=== PATIENT | male | born 1945 | race Caucasian/White ===

== ENCOUNTER → 2020-11-13 13:14 | Outpatient (BNVA) | payer MEDICARE, SELFPAY | PROVIDERS: Family Provider Family Medicine; PCP Family Medicine; Referring Provider Family Medicine; Visit Provider Orthopaedic Surgery | DX: G56.02 Carpal tunnel syndrome, left upper limb (principal); M19.042 Primary osteoarthritis, left hand | CPT/HCPCS: 73130 ==

== ENCOUNTER → 2020-12-10 12:59 | Outpatient (BNVA) | payer MEDICARE, SELFPAY | PROVIDERS: Family Provider Family Medicine; PCP Family Medicine; Visit Provider Specialist | DX: G56.02 Carpal tunnel syndrome, left upper limb (principal); M18.12 Unilateral primary osteoarthritis of first carpometacarpal joint, left hand; R20.0 Anesthesia of skin | CPT/HCPCS: 95886; 95908 ==

== ENCOUNTER → 2021-01-18 10:40 | Outpatient (BNVA) | payer MEDICARE, SELFPAY | PROVIDERS: Family Provider Family Medicine; PCP Family Medicine; Visit Provider Orthopaedic Surgery | DX: Z20.822 Contact with and (suspected) exposure to COVID-19 (principal); G56.02 Carpal tunnel syndrome, left upper limb | CPT/HCPCS: 87635 ==

== ENCOUNTER 2021-01-24 07:28 | Day surgery (SDC) | payer MEDICARE, SELFPAY ==
[2021-01-23 15:08] VITALS: BMI 34.3
[2021-01-24] VITALS (10 sets, daily range): BP systolic 122–173; BP diastolic 59–78; PULSE 48–65; RESP 12–18; TEMP 35.9–36.7; O2SAT 93–97
[2021-01-24] MEDS: sodium chloride 0.9% 1,000 ML 30 ML IV (07:58)
--- NOTE | 2021-01-24 08:35 | ANES.PREANE2 ---
Pre-Anesthetic Assessment Pre-Anesthetic Assessment: Height/Weight: Height 1.63 m Weight 90.718 kg Temp Pulse Resp BP Pulse Ox 97.9 F 65 18 133/60 93 01/24/21 07:38 01/24/21 07:38 01/24/21 07:38 01/24/21 07:38 01/24/21 07:38 Preop Diagnosis: Carpal tunnel syndrome Left wrist, osteoarthritis left thumb Proposed Procedure: Operation Date: 01/24/21 08:55 Proposed Procedures p Carpal Tunnel Release 68008 G56.02(Left) - Adolfo Clancy MD Was Beta Flex taken within 24 hours: Yes Was Clonidine taken within 24 hours: N/A Last intake: Intake Last Liquid Date 01/23/21 Last Liquid Time 19:00 Last Solid Date 01/23/21 Last Solid Time 19:00 Social: Social History: No alcohol and No tobacco Exam: Pre-Anes Outpt Exam: alert and oriented x 3 Additional Exam Findings (including area of procedure): Bilateral expiratory wheezes Airway: Submandibular: Other (limited (short neck)) Cervical ROM: Other (limited ) MP: 3 Dentition: False Pulmonary: Pulmonary: COPD, Cough and SOB CV/HEM: CV/HEM: Arrythmia, CAD and HTN : : None reported Hepatic: Hepatic: None reported Metabolic: Metabolic: None reported Musc/skel: Musc/skel: None reported Neuropsych: Neuropsych: None reported Anesthetic Plan: ASA status: 3 Anesthesia: Regional (specify below) Meds/Allergies Current Medications: Current Medications Generic Name Dose Route Start Last Admin Trade Name Freq PRN Reason Stop Dose Admin Sodium Chloride 1,000 mls @ 30 ml s/hr 01/24/21 07:45 01/24/21 07:58 Sodium Chloride 0.9% IV 01/25/21 07:44 30 mls/hr .Q24H ZORA Administration PFSH Anesthesia PFSH: Medical History Anticoagulant long-term use Atrial fibrillation COPD (chronic obstructive pulmonary disease) Dyslipidemia History of cardioversion HTN (hypertension) Family History Father CAD (coronary artery disease) Stroke Mother CAD (coronary artery disease) Cancer Myocardial infarction Grandfather Diabetes PATERNAL Grandmother Diabetes MATERNAL Data Anesthesia Cardiac Studies: No Data to Display
--- NOTE | 2021-01-24 08:46 | W.PM.OPSUD ---
Surgery/Procedure H&P Update DATE OF PROCEDURE: January 24, 2021 DATE H&P PERFORMED: 01/08/21 PREOP DIAGNOSIS: Carpal tunnel syndrome Left wrist, osteoarthritis left thumb PLANNED PROCEDURE: Operation Date: 01/24/21 08:55 Proposed Procedures p Carpal Tunnel Release [id number] G56.02(Left) - Adolfo Clancy MD
[2021-01-24] MEDS: clindamycin 600 MG/50 ML PREMIX 100 MG IV (09:38)
--- NOTE | 2021-01-24 10:32 | PM.OP ---
Operative Report Date of procedure: January 24, 2021 Pre-op Diagnosis: Carpal tunnel syndrome Left wrist Post-op diagnosis: same Procedure Done: Left carpal tunnel release Pathology: none sent Anesthesia: Nerve Block (Renita block) Estimated blood loss (mL): 5 Tourniquet time (min): 20 Findings: No masses or space-occupying lesions were seen within the carpal tunnel Condition: stable Disposition: PACU Procedure: Patient was taken to the operating room and anesthesia provided by the anesthesia service. She was prepped and draped with the arm exposed. A timeout was performed. A 3 cm long incision was made in line with the fourth ray from the distal edge of the carpal tunnel extending proximally. The subcutaneous fat and palmar fascia was divided with a scalpel blade. Under loupe magnification the ulnar neurovascular bundle was identified distally. A hemostat could be passed under the transverse carpal ligament allowing the distal 25% to be divided. A slotted guide was then passed beneath the transverse carpal ligament and the middle 50% divided. Blunt scissors were then passed over the guide freeing the proximal ligament. The tourniquet was deflated. Hemostasis provided with electrocautery. Wound edges were infiltrated with 10 cc of a half percent Marcaine solution. Skin edges were reapproximated with 3-0 Prolene. Sterile dressings were applied. The patient was taken to the recovery room in stable condition
--- NOTE | 2021-01-24 13:35 | ANE.PACU2 ---
Inpatient post-anesthesia follow up: Airway intact: Yes Vital signs: Temperature 97.8 F Pulse Rate 58 Respiratory Rate 18 Blood Pressure 173/78 Pulse Oximetry 95 Oxygen Delivery Me thod Room Air Oxygen Flow Rate 2 Fraction of Inspir ed Oxygen Hydration adequate: Yes Nausea and vomiting: No Pain level: 1 Mental status: Baseline
== END 2021-01-24 11:37 | disposition home or self-care (01) ==
PROVIDERS: PCP Family Medicine; Visit Provider Orthopaedic Surgery
PROC: (CPT 64721; principal; 2021-01-24 08:45)
DX: G56.02 Carpal tunnel syndrome, left upper limb (principal); J44.9 Chronic obstructive pulmonary disease, unspecified; I25.10 Atherosclerotic heart disease of native coronary artery without angina pectoris; I10 Essential (primary) hypertension; I48.91 Unspecified atrial fibrillation; Z79.01 Long term (current) use of anticoagulants; E78.5 Hyperlipidemia, unspecified; Z82.49 Family history of ischemic heart disease and other diseases of the circulatory system; Z83.3 Family history of diabetes mellitus; Z79.82 Long term (current) use of aspirin
CPT/HCPCS: 64721; 94640; 96365; J0690; J2704; J3010; J3490; J7030; J7611

== ENCOUNTER 2022-03-24 08:09 | Emergency (ER) | payer OTHER, SELFPAY ==
[2022-03-24 08:11] VITALS: BP 114/92; PULSE 90; RESP 18; TEMP 36.5; O2SAT 97; BMI 35.2
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
[2022-03-24 08:54] LABS: Add Urine Microscopic? NO; Charge for UA Resulting for Rev
[2022-03-24 09:00] LABS: Bilirubin Urine Neg (Negative); Blood Urine Neg (Negative); Glucose Urine UA Norm (Normal); Ketones Urine Negative (Negative); Leukocyte Esterase Urine Negative (Negative); Nitrate Urine Negative (Negative); Protein Urine Neg (Negative); Specific Gravity, Urine 1.015 (1.005-1.030); Urine Appearance Clear (CLEAR); Urine Color Yellow (Yellow); Urobilinogen Urine Norm (Negative); pH Urine 5 (5-7)
[2022-03-24 09:08] LABS: Amphetamines Screen Urine Negative (Negative); Barbiturates Screen Urine Negative (Negative); Benzodiazepines Screen Urine Negative (Negative); Cocaine Screen Urine Negative (Negative); Opiate Screen Urine Negative (Negative); PCP Screen Urine Negative (Negative); THC Screen Urine Negative (Negative)
[2022-03-24 09:18] LABS: Basophils # 0.1 10^3/uL (0.0-0.1); Basophils % 1.7 %; Eosinophils # 0.4 10^3/uL (0.0-0.8); Eosinophils % 4.7 %; Hematocrit 38.6 % (42.0-52.0); Hemoglobin 13.2 g/dL (11.7-16.6); Lymphocytes % 25.7 %; Mean Corpuscular HGB Conc 34.2 g/dL (30.0-36.0); Mean Corpuscular Hemoglobin 32.8 pg (28.0-34.0); Mean Platelet Volume 11.4 fL (7.4-10.4); Monocytes # 0.7 10^3/uL (0.2-0.9); Monocytes % 9.3 %; Neutrophils # 4.47 10^3/uL (1.8-7.7); Neutrophils % 58.2 %; Nucleated Red Blood Cells % 0 %; Platelet Count 173 10^3/cmm (130-400); Red Blood Count 4.02 10^6/uL (4.1-5.3); Red Cell Distribution Width 12.6 % (12.1-15.1); White Blood Count 7.7 10^3/uL (4.0-10.0)
[2022-03-24 09:38] LABS: Alanine Aminotransferase 14 U/L (0-41); Albumin Level 3.9 g/dL (3.5-5.2); Alkaline Phosphatase 94 IU/L (40-130); Anion Gap 15.8 (5-19); Aspartate Amino Transferase 19 U/L (0-40); Blood Urea Nitrogen 39 mg/dL (8-23); Calcium 9.5 mg/dL (8.5-10.5); Carbon Dioxide 27 mmol/L (22-29); Chloride 100 mmol/L (98-107); Glucose 102 mg/dL (65-115); Osmolality Calculated 298 mOsm/kg (285-295); Potassium 3.8 mmol/L (3.5-5.1); Sodium 139 mmol/L (136-145); Total Bilirubin 0.2 mg/dL (0.15-1.2); Total Protein 6.9 g/dL (6.6-8.7)
[2022-03-24 09:42] LABS: Alcohol Level < 10 mg/dL (0-10)
[2022-03-24 10:53] VITALS: BP 116/59; PULSE 83; RESP 16; O2SAT 96
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
== END 2022-03-24 10:54 | disposition home or self-care (01) ==
PROVIDERS: Emergency Provider Family Medicine; PCP Family Medicine
DX: Z04.1 Encounter for examination and observation following transport accident (principal)
CPT/HCPCS: 36415; 72040; 80053; 80306; 80307; 81003; 85025; 99283

== ENCOUNTER → 2022-10-21 11:02 | Outpatient (BNVA) | payer MEDICARE, SELFPAY | PROVIDERS: PCP Family Medicine; Visit Provider Internal Medicine Cardiovascular Disease | DX: I48.11 Longstanding persistent atrial fibrillation (principal); E78.5 Hyperlipidemia, unspecified; J41.0 Simple chronic bronchitis; I10 Essential (primary) hypertension; Z87.891 Personal history of nicotine dependence | CPT/HCPCS: 99213 ==

== ENCOUNTER → 2022-10-28 10:41 | Outpatient (BNVA) | payer MEDICARE, SELFPAY | PROVIDERS: PCP Family Medicine; Visit Provider Orthopaedic Surgery | DX: G56.02 Carpal tunnel syndrome, left upper limb (principal) | CPT/HCPCS: 99213 ==

== ENCOUNTER 2022-11-13 08:15 | Day surgery (SDC) | payer MEDICARE, SELFPAY ==
[2022-11-12 09:24] VITALS: BMI 31.4
--- NOTE | 2022-11-13 08:26 | ECG_ITS ---
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 Measurements Intervals [place] Rate: 86 P: 0 NM: 0 QRS: 40 QRSD: 89 T: 42 QT: 408 QTc: 489 Interpretive Statements ATRIAL FIBRILLATION ABNORMAL RHYTHM ECG Compared to ECG 07/15/2017 08:02:06 Sinus bradycardia no longer present Electronically Signed On 11-13-2022 12:55:32 SECURITY PROGRAM MANAGER by Shyla Ventura M.D. [id number]
[2022-11-13 08:33] VITALS: BP 144/86; PULSE 94; RESP 18; TEMP 36.1; O2SAT 95
[2022-11-13] MEDS: sodium chloride 0.9% 1,000 ML 30 ML IV (09:05)
[2022-11-13 09:28] LABS: Anion Gap 16.2 (5-19); Blood Urea Nitrogen 23 mg/dL (8-23); Calcium 8.9 mg/dL (8.5-10.5); Carbon Dioxide 27 mmol/L (22-29); Chloride 98 mmol/L (98-107); Glucose 107 mg/dL (65-115); Osmolality Calculated 288 mOsm/kg (285-295); Potassium 4.2 mmol/L (3.5-5.1); Sodium 137 mmol/L (136-145)
--- NOTE | 2022-11-13 09:54 | W.PM.OPSUD ---
Surgery/Procedure H&P Update DATE OF PROCEDURE: November 13, 2022 DATE H&P PERFORMED: 10/28/22 H&P UPDATE INFORMATION: I have reviewed H&P completed within last 30 days PREOP DIAGNOSIS: Carpal tunnel syndrome right PLANNED PROCEDURE: Operation Date: 11/13/22 09:50 Proposed Procedures p right carpal tunnel release [id number],G56.02(Left) - Adolfo Clancy MD
--- NOTE | 2022-11-13 10:55 | ANES.PREANE2 ---
Pre-Anesthetic Assessment Height/Weight: Height 1.7 m Weight 91.172 kg Temp Pulse Resp BP Pulse Ox O2 Del Method 97.0 F L 94 18 144/86 95 11/13/22 08:33 11/13/22 08:33 11/13/22 08:33 11/13/22 08:33 11/13/22 08:33 11/13/22 08:33 Preop Diagnosis: Carpal tunnel syndrome right Operation Date: 11/13/22 09:50 Proposed Procedures p left carpal tunnel release [id number],G56.02(Left) - Adolfo Clancy MD Familial anesthetic complications: none Was Beta Flex taken within 24 hours: Yes Was Clonidine taken within 24 hours: N/A Last intake: Intake Last Liquid Date 11/12/22 Last Liquid Time 21:00 Last Solid Date 11/12/22 Last Solid Time 16:30 Social No alcohol and No tobacco Exam alert, oriented x 3 and regular rate & rhythm Airway Submandibular: within normal limits Cervical ROM: within normal limits Mallampati: Class II Dentition: chipped Pulmonary Chronic Obstructive Pulmonary Disease CV/HEM Atrial Fibrillation and Hypertension anticoagulated Anesthetic Plan ASA status: 3 Anesthesia: Choice Medications/Allergies Home Medications Medication Instructions Recorded Confirmed Last Taken Type albuterol sulfate 1.25 mg/3 mL 1.25 mg inhalation QID PRN 11/16/19 11/12/22 Unknown History solution for nebulization shortness of breath aspirin 81 mg tablet,delayed 81 mg PO DAILY 11/16/19 11/12/22 11/08/22 History release (Adult Low Dose Aspirin) cetirizine 10 mg tablet (Zyrtec) 10 mg PO DAILY PRN Allergic 11/16/19 11/12/22 11/12/22 History Symptoms gabapentin 300 mg capsule 300 mg PO BID 11/16/19 11/12/22 11/12/22 History albuterol sulfate 90 mcg/actuation 1 inh inhalation QID #1 ea 04/15/22 11/12/22 Unknown Rx breath activated powder inhaler metoprolol tartrate 25 mg tablet 25 mg PO BID #60 tabs 07/08/22 11/13/22 11/12/22 18:00 Rx furosemide 20 mg tablet (Lasix) 20 mg PO DAILY #60 tabs 08/28/22 11/12/22 11/12/22 Rx amiodarone 200 mg tablet 100 mg PO DAILY #45 tabs 09/29/22 11/13/22 11/13/22 Rx rivaroxaban 20 mg tablet (Xarelto) 20 mg PO DAILY #90 tabs 10/15/22 11/12/22 11/08/22 Rx diphenhydramine HCl 25 mg capsule 25 mg PO TID PRN Allergy Symptoms 10/21/22 11/12/22 11/10/22 History (Benadryl) rosuvastatin 10 mg tablet 10 mg PO DAILY 10/21/22 11/12/22 11/12/22 History losartan 50 mg-hydrochlorothiazide 1 tab PO BID #180 tabs 11/04/22 11/12/22 11/12/22 Rx 12.5 mg tablet Allergies Allergy/AdvReac Type Severity Reaction Status Date / Time Penicillins Allergy Severe SOB and Verified 10/28/22 11:00 rash cortisone Allergy Unknown Unknown Verified 10/28/22 11:00 [facility] Anesthesia Medical History Anticoagulant long-term use Atrial fibrillation COPD (chronic obstructive pulmonary disease) Dyslipidemia Epistaxis History of cardioversion HTN (hypertension) Rectal bleeding Family History Father CAD (coronary artery disease) Stroke Mother CAD (coronary artery disease) Cancer Myocardial infarction Grandfather Diabetes PATERNAL Grandmother Diabetes MATERNAL Social History Smoking and tobacco status: former smoker Alcohol intake: never Data Anesthesia 11/13/22 09:03 BMP 11/13/22 09:03 Sodium 137 Potassium 4.2 Chloride 98 Carbon Dioxide 27 BUN 23 Creatinine 1.5 H Glucose 107 Calcium 8.9 Cardiac Studies: No Data to Display
[2022-11-13] MEDS: ceFAZolin 2,000 MG in sodium chloride 0.9% (plus) 50 ML 100 MG IV (11:13)
[2022-11-13 11:59] VITALS: BP 144/76; PULSE 86; RESP 16; TEMP 36.1; O2SAT 100
[2022-11-13 12:05] VITALS: BP 138/99; PULSE 82; RESP 16; O2SAT 100
[2022-11-13 12:10] VITALS: BP 153/80; PULSE 90; RESP 16; O2SAT 97
[2022-11-13 12:13] VITALS: BP 132/78; PULSE 84; RESP 16; TEMP 36.6; O2SAT 95
[2022-11-13 12:28] VITALS: BP 131/80; PULSE 91; RESP 17; O2SAT 96
--- NOTE | 2022-11-13 14:24 | ANE.PACU2 ---
Inpatient post-anesthesia follow up: Airway intact: Yes Vital signs: Temperature 98 F Pulse Rate 91 Respiratory Rate 17 Blood Pressure 131/80 Pulse Oximetry 96 Oxygen Delivery Me thod Room Air Oxygen Flow Rate 6 Fraction of Inspir ed Oxygen Hydration adequate: Yes Nausea and vomiting: No Pain level: 2 Mental status: Baseline
--- NOTE | 2022-11-17 10:02 | PM.OP ---
Operative Report Date of procedure: November 13, 2022 Pre-op diagnosis: Preop Diagnosis Carpal tunnel syndrome right Post-op diagnosis: same Post-op diagnosis: Same Procedure done: Right carpal tunnel release Pathology: none sent Surgeon: Adolfo Clancy Anesthesia: Nerve Block ([place] block) Estimated blood loss (mL): 2 Tourniquet time (min): 20 Findings: No masses or space-occupying lesions were seen within the carpal tunnel Condition: stable Disposition: PACU Procedure: Patient was taken to the operating room and anesthesia provided by the anesthesia service. She was prepped and draped with the arm exposed. A timeout was performed. A 3 cm long incision was made in line with the fourth ray from the distal edge of the carpal tunnel extending proximally. The subcutaneous fat and palmar fascia was divided with a scalpel blade. Under loupe magnification the ulnar neurovascular bundle was identified distally. A hemostat could be passed under the transverse carpal ligament allowing the distal 25% to be divided. A slotted guide was then passed beneath the transverse carpal ligament and the middle 50% divided. Blunt scissors were then passed over the guide freeing the proximal ligament. The tourniquet was deflated. Hemostasis provided with electrocautery. Wound edges were infiltrated with 10 cc of a half percent Marcaine solution. Skin edges were reapproximated with 3-0 Prolene. Sterile dressings were applied. The patient was taken to the recovery room in stable condition
== END 2022-11-13 12:50 | disposition home or self-care (01) ==
PROVIDERS: Anesthesiology; PCP Family Medicine; Visit Provider Orthopaedic Surgery
PROC: (CPT 64721; principal; 2022-11-13 09:40)
DX: G56.01 Carpal tunnel syndrome, right upper limb (principal); J44.9 Chronic obstructive pulmonary disease, unspecified; I48.91 Unspecified atrial fibrillation; I10 Essential (primary) hypertension; Z79.01 Long term (current) use of anticoagulants; Z79.82 Long term (current) use of aspirin; E78.5 Hyperlipidemia, unspecified; Z87.891 Personal history of nicotine dependence
CPT/HCPCS: 64721; 36415; 80048; 93005; J0690; J2704; J3490; J7030

== ENCOUNTER → 2022-11-20 09:40 | Outpatient (BNVA) | payer MEDICARE, SELFPAY | PROVIDERS: PCP Family Medicine; Visit Provider Nurse Practitioner Family | DX: Z98.890 Other specified postprocedural states (principal) | CPT/HCPCS: 99024 ==

== ENCOUNTER 2022-12-02 13:23 | Outpatient (CLI) | payer MEDICARE, SELFPAY ==
--- NOTE | 2022-12-02 13:39 | CT_ITS ---
WS: [id number] CT LUMBAR SPINE TECHNIQUE: Noncontrast CT of the lumbar spine with coronal and sagittal reformatted images. CLINICAL INFORMATION: RADICULAR LOW BACK PAIN COMPARISON: None. DLP: 842.[address] scans at [facility] use at least one of these dose optimization techniques: automated e xposure control; mA and/or kV adjustment per patient size (includes targeted exams where dose is matc hed to clinical indication); or iterative reconstruction. FINDINGS: Mild lumbar curve. No acute compression. Slight anterolisthesis L4 on L5. Disc space narrowing with v acuum disc phenomenon at L1-L2 and L2 on L3. Visualized lung bases are well aerated. Adrenal glands are normal. No acute compression fractures. L1-L2: Small LEFT proximal foraminal protrusion. Mild LEFT foraminal narrowing. Slight narrowing of t he LEFT subarticular recess. Moderate facet arthropathy. Spinal canal is patent. L2-L3: Mild disc bulging with mild central canal stenosis. Shallow central protrusion. Impingement tr aversing L3 nerve roots bilaterally. Moderate facet arthropathy. Foramen are patent. L3-L4: Mild annular bulging with slight effacement of the ventral thecal sac. Moderate facet arthropa thy. Spinal canal and foramen are patent. L4-L5: Slight anterolisthesis L4 on L5. Mild annular bulging with slight effacement of ventral thecal sac. Moderate facet arthropathy. Foramen are patent. L5-S1: Mild annular bulging. Moderate facet arthropathy. Mild RIGHT and no LEFT foraminal narrowing. Visualized pelvic bony structures: Normal. Paravertebral soft tissues: Normal. CT/CT lumbar spine wo con* [id number] IMPRESSION: 1. Mild lumbar curve. No acute compression. Slight anterolisthesis L4 on L5. 2. Mild disc bulging with a shallow central protrusion L2-L3 with mild central canal stenosis. Slight impingement traversing L3 nerve roots bilaterally. Mode rate facet arthropathy at this level. 3. Tiny shallow LEFT subarticular and proximal foraminal protrusion L1-L2 with mild LEFT foraminal narrowing. 4. Slight anterolisthesis L4-L5 with mild annular bulging and slight effacemen t of ventral thecal sac. 5. Mild bony RIGHT L5-S1 bony foraminal narrowing. 6. Moderate facet arthropathy L3-L5.
== END 2022-12-02 13:24 | disposition home or self-care (01) ==
PROVIDERS: PCP Family Medicine; Visit Provider Family Medicine
DX: M54.16 Radiculopathy, lumbar region (principal); M51.26 Other intervertebral disc displacement, lumbar region; M47.816 Spondylosis without myelopathy or radiculopathy, lumbar region
CPT/HCPCS: 72131

== ENCOUNTER → 2023-01-13 08:10 | Outpatient (BNVA) | payer MEDICARE, SELFPAY | PROVIDERS: PCP Family Medicine; Visit Provider Orthopaedic Surgery | DX: Z98.890 Other specified postprocedural states (principal); R20.0 Anesthesia of skin; R20.2 Paresthesia of skin | CPT/HCPCS: 99024; 99214 ==

== ENCOUNTER → 2023-01-22 09:10 | Outpatient (BNVA) | payer MEDICARE, SELFPAY | PROVIDERS: PCP Family Medicine; Referring Provider Family Medicine; Visit Provider Anesthesiology Pain Medicine | DX: M47.816 Spondylosis without myelopathy or radiculopathy, lumbar region (principal) | CPT/HCPCS: 99204 ==

== ENCOUNTER → 2023-03-24 07:54 | Outpatient (BNVA) | payer MEDICARE, SELFPAY | PROVIDERS: PCP Family Medicine; Visit Provider Specialist | DX: G56.01 Carpal tunnel syndrome, right upper limb (principal) | CPT/HCPCS: 95908; 95909 ==

== ENCOUNTER → 2023-03-31 14:23 | Outpatient (BNVA) | payer MEDICARE, SELFPAY | PROVIDERS: PCP Family Medicine; Visit Provider Orthopaedic Surgery | DX: G56.01 Carpal tunnel syndrome, right upper limb (principal) | CPT/HCPCS: 99213 ==

== ENCOUNTER → 2023-04-21 11:05 | Outpatient (BNVA) | payer MEDICARE, SELFPAY | PROVIDERS: PCP Family Medicine; Visit Provider Internal Medicine Cardiovascular Disease | DX: I48.11 Longstanding persistent atrial fibrillation (principal); Z79.01 Long term (current) use of anticoagulants; I10 Essential (primary) hypertension; J41.0 Simple chronic bronchitis; R42 Dizziness and giddiness; Z87.891 Personal history of nicotine dependence | CPT/HCPCS: 99213 ==

== ENCOUNTER 2023-05-06 13:26 | Emergency (ER) | payer OTHER, SELFPAY ==
[2023-05-06 14:25] VITALS: BP 98/60; PULSE 101; RESP 16; TEMP 37.1; O2SAT 96; BMI 35.2
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
[2023-05-06 16:31] VITALS: BP 145/112; PULSE 109; O2SAT 94
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
[2023-05-06 17:44] VITALS: BP 145/112; PULSE 109; O2SAT 94
== END 2023-05-06 17:45 | disposition home or self-care (01) ==
PROVIDERS: Emergency Provider Family Medicine; PCP Family Medicine
DX: S43.401A Unspecified sprain of right shoulder joint, initial encounter (principal); V89.2XXA Person injured in unspecified motor-vehicle accident, traffic, initial encounter; J44.9 Chronic obstructive pulmonary disease, unspecified; E78.5 Hyperlipidemia, unspecified; I10 Essential (primary) hypertension; Z87.891 Personal history of nicotine dependence
CPT/HCPCS: 72040; 73030; 73130; 99284

== ENCOUNTER → 2023-06-14 10:50 | Outpatient (BNVA) | payer OTHER, SELFPAY | PROVIDERS: PCP Family Medicine; Visit Provider Family Medicine | DX: R05.9 Cough, unspecified (principal); Z20.822 Contact with and (suspected) exposure to COVID-19 | CPT/HCPCS: 87426 ==

== ENCOUNTER 2023-06-16 10:30 | Outpatient (CLI) | payer OTHER, SELFPAY ==
--- NOTE | 2023-06-16 10:43 | MR_ITS ---
WS: [id number] MRI RIGHT SHOULDER HISTORY: SUBLUXATION OF SHOULDER JOINT COMPARISON: Radiograph 05/06/2023 TECHNIQUE: Multiplanar sequences of the shoulder joint are submitted. Severe AC joint arthritis. Bone and soft tissue hypertrophy with mild encroachment on the supraspinat us. Mild downsloping of the acromion with a small osteophyte along the undersurface. Moderate impinge ment upon the rotator cuff. Small amount of fluid in the subacromial and subdeltoid bursa. Only a miranda y small portion of the biceps tendon is identified. No os acromion. There are numerous micrometallic artifacts throughout the shoulder which are typically seen with prio r shoulder repair. Patient did not report prior surgery. Mild atrophy of the supraspinatus muscle but no edema. Marked tendinopathy with surface fraying invol ving the distal supraspinatus tendon. There is no full-thickness tear or retraction of the tendon. Th ere is significant encroachment upon the supraspinatus tendon by the AC joint and subacromial impinge ment. Advanced degenerative changes at the glenohumeral joint. Loss of cartilage with osteophytes and erosions along the joint surfaces. There is also significant motion artifact limiting evaluation of the rotator cuff and the labrum. IMPRESSION: 1. Quality of this examination is compromised by significant motion artifact on all sequences. 2. Scattered, significant micrometallic artifact throughout the shoulder. These types of artifact are typically seen after shoulder surgery. Patient denies prior shoulder surgery. 3. Severe AC joint arthritis. 4. Moderate subacromial impingement with encroachment upon the supraspinatus tendon. 5. Moderate tendinopathy in the distal supraspinatus tendon but no tear is identified. Articular surf hermilo tear may be difficult to exclude with this amount of motion. 6. Advanced glenohumeral joint arthritis. Loss of cartilage with erosive changes along the glenoid.
== END 2023-06-16 10:31 | disposition home or self-care (01) ==
PROVIDERS: PCP Family Medicine; Visit Provider Family Medicine
DX: S43.001A Unspecified subluxation of right shoulder joint, initial encounter (principal); X58.XXXA Exposure to other specified factors, initial encounter; M19.011 Primary osteoarthritis, right shoulder; M25.811 Other specified joint disorders, right shoulder; M67.813 Other specified disorders of tendon, right shoulder
CPT/HCPCS: 73221

== ENCOUNTER → 2023-06-20 12:51 | Outpatient (BNVA) | payer OTHER, SELFPAY | PROVIDERS: PCP Family Medicine; Visit Provider Emergency Medicine | DX: S60.222A Contusion of left hand, initial encounter; X58.XXXA Exposure to other specified factors, initial encounter | CPT/HCPCS: 73130 ==

== ENCOUNTER 2023-07-16 05:35 | Day surgery (SDC) | payer OTHER, SELFPAY ==
[2023-07-15 14:00] VITALS: BMI 35.0
[2023-07-16] VITALS (10 sets, daily range): BP systolic 87–157; BP diastolic 50–83; PULSE 60–93; RESP 12–18; TEMP 36.1–36.2; O2SAT 92–100; BMI 35.0
--- NOTE | 2023-07-16 06:30 | ANES.PREANE2 ---
Pre-Anesthetic Assessment Height/Weight: Height 1.63 m Weight 92.533 kg O2 Del Method Room Air 07/16/23 06:12 Preop Diagnosis: Right Carpal Tunnel syndrome recurrent Operation Date: 07/16/23 07:00 Proposed Procedures p RIGHT CARPAL TUNNEL RELEASE REVISION [id number],G56.00(Right) - Cuong Simons DO Familial anesthetic complications: None Was Beta Flex taken within 24 hours: Yes Was Clonidine taken within 24 hours: N/A Last intake: Intake Last Liquid Date 07/15/23 Last Liquid Time 22:00 Last Solid Date 07/16/23 Last Solid Time 18:00 Social No alcohol and No tobacco Exam alert, oriented x 3, clear to auscultation bilaterally and regular rate & rhythm Airway Mallampati: Class II Dentition: chipped Pulmonary Chronic Obstructive Pulmonary Disease CV/HEM Atrial Fibrillation and Hypertension Metabolic Hyperlipidemia Anesthetic Plan ASA status: 3 Anesthesia: MAC Risk of > 500 ml blood loss (7ml/kg in children): No Medications/Allergies Home Medications Medication Instructions Recorded Confirmed Last Taken Type albuterol sulfate 1.25 mg/3 mL 1.25 mg inhalation QID PRN 11/16/19 07/15/23 07/15/23 History solution for nebulization shortness of breath aspirin 81 mg tablet,delayed 81 mg PO DAILY 11/16/19 07/15/23 07/15/23 History release (Adult Low Dose Aspirin) gabapentin 300 mg capsule 300 mg PO BID 11/16/19 07/16/23 07/16/23 04:30 History albuterol sulfate 90 mcg/actuation 1 inh inhalation QID #1 ea 04/15/22 07/16/23 07/14/23 Rx breath activated powder inhaler metoprolol tartrate 25 mg tablet 25 mg PO BID #60 tabs 07/08/22 07/16/23 07/16/23 04:30 Rx rivaroxaban 20 mg tablet (Xarelto) 20 mg PO DAILY #90 tabs 10/15/22 07/15/23 07/10/23 Rx diphenhydramine HCl 25 mg capsule 25 mg PO TID PRN Allergy Symptoms 10/21/22 07/15/23 11/10/22 History (Benadryl) rosuvastatin 10 mg tablet 10 mg PO DAILY 10/21/22 07/15/23 07/15/23 History amiodarone 200 mg tablet 100 mg PO DAILY #45 tabs 12/11/22 07/16/23 07/16/23 04:30 Rx furosemide 20 mg tablet (Lasix) 20 mg PO DAILY #90 tabs 05/07/23 07/15/23 07/15/23 Rx ondansetron 4 mg disintegrating 4 mg PO Q8H PRN nausea and 06/14/23 07/15/23 Unknown Rx tablet vomiting #30 tabs acyclovir 400 mg tablet 400 mg PO DAILY 07/15/23 07/15/23 07/15/23 History citalopram 10 mg tablet 10 mg PO DAILY 07/15/23 07/15/23 07/15/23 History Allergies Allergy/AdvReac Type Severity Reaction Status Date / Time Penicillins Allergy Severe SOB and Verified 07/16/23 06:06 rash cortisone Allergy Unknown Unknown Verified 07/16/23 06:06 Current Medications Generic Name Dose Route Start Last Admin Trade Name Freq PRN Reason Stop Dose Admin Sodium Chloride 1,000 mls @ 30 mls/hr 07/16/23 06:30 07/16/23 06:40 Sodium Chloride 0.9% IV 07/17/23 06:29 30 mls/hr .Q24H ZORA Administration PFSH Anesthesia Medical History Anticoagulant long-term use Atrial fibrillation COPD (chronic obstructive pulmonary disease) Dizziness Dyslipidemia Epistaxis History of cardioversion HTN (hypertension) Rectal bleeding Family History Father CAD (coronary artery disease) Stroke Mother CAD (coronary artery disease) Cancer Myocardial infarction Grandfather Diabetes PATERNAL Grandmother Diabetes MATERNAL Social History Smoking and tobacco status: former smoker Alcohol intake: never Substance/Drug Use: never Data Anesthesia 07/16/23 06:28 07/16/23 06:28 Short CBC 07/16/23 Range/Units 06:28 WBC 6.91 (3.29-11.43) 10^3/uL Hgb 13.80 (11.27-16.99) g/dL Hct 42.8 (37-53) % MCV 94.5 (82-101) fl Plt Count 185 (157-399) 10^3/cmm Neut % (Auto) 51.1 % Neut # (Auto) 3.53 (1.8-7.7) 10^3/uL BMP 07/16/23 06:28 Sodium Cancelled Potassium Cancelled Chloride Cancelled Carbon Dioxide Cancelled BUN Cancelled Creatinine Cancelled Glucose Cancelled Calcium Cancelled Cardiac Studies: No Data to Display
[2023-07-16] MEDS: sodium chloride 0.9% 1,000 ML 30 ML IV (06:40)
[2023-07-16 06:42] LABS: Basophils # 0.1 10^3/uL (0.0-0.1); Basophils % 1.2 %; Eosinophils # 0.3 10^3/uL (0.0-0.8); Eosinophils % 3.9 %; Hematocrit 42.8 % (37-53); Lymphocytes # 2.2 10^3/uL (0.8-4.8); Lymphocytes % 31.5 %; Mean Corpuscular HGB Conc 32.2 g/dL (30-55); Mean Corpuscular Hemoglobin 30.5 pg (27-33); Mean Corpuscular Volume 94.5 fl (82-101); Mean Platelet Volume 11.5 fL (7.4-10.4); Monocytes # 0.8 10^3/uL (0.2-0.9); Neutrophils # 3.53 10^3/uL (1.8-7.7); Neutrophils % 51.1 %; Nucleated Red Blood Cells % 0 %; Platelet Count 185 10^3/cmm (157-399); Red Blood Count 4.53 10^6/uL (3.85-5.65); Red Cell Distribution Width 12.7 % (12.1-15.1); White Blood Count 6.91 10^3/uL (3.29-11.43)
--- NOTE | 2023-07-16 06:54 | W.PM.OPSUD ---
Surgery/Procedure H&P Update DATE OF PROCEDURE: July 16, 2023 DATE H&P PERFORMED: 06/23/23 H&P UPDATE INFORMATION: I have reviewed H&P completed within last 30 days, I have examined patient prior to procedure and No changes to prior documentation PREOP DIAGNOSIS: Right carpal tunnel syndrome recurrent PRIMARY INDICATION FOR PROCEDURE: Recurrent right carpal tunnel syndrome PLANNED PROCEDURE: Operation Date: 07/16/23 07:00 Proposed Procedures p RIGHT CARPAL TUNNEL RELEASE REVISION [id number],G56.00(Right) - Cuong Simons DO
[2023-07-16] MEDS: ceFAZolin 2,000 MG in sodium chloride 0.9% (plus) 50 ML 100 MG IV (07:09)
[2023-07-16] MEDS: acetaminophen 1,000 MG/100 ML PIGGYBACK 400 MG IV (07:22)
[2023-07-16] MEDS: lidocaine-epi 2% 20 mL INJ 5 ML INJECTION (07:30)
[2023-07-16] MEDS: ROPivacaine 0.5% SDV 30 mL 25 MG INJECTION (07:31)
--- NOTE | 2023-07-16 08:24 | P.BOP_ITS ---
Date of Procedure: 07/16/2023 Surgeon: Cuong Simons DO Talent Development Consultant(s): None Procedure(s) performed: Right carpal tunnel release revision Findings of the procedure(s): Right carpal tunnel syndrome, median nerve entrapment throughout the wrist and distal forearm fascia, procedure went as planned without any complications Estimated blood loss: 5 mL Specimen(s) removed: None Post-operative diagnosis: Recurrent right carpal tunnel syndrome
--- NOTE | 2023-07-16 08:26 | P.OP_ITS ---
Operative Report Date of procedure: July 16, 2023 Surgeon: Cuong Simons DO Procedure: Preoperative diagnosis: Recurrent right carpal tunnel syndrome Post-op diagnosis: Same Procedure done: 1.? Revision right carpal tunnel?release Surgeon: Cuogn Simons DO Anesthesia: MAC (Local) Estimated blood loss: [5mL Tourniquet time [28]minutes IV fluids: See anesthesia?record Complications: None Findings: See operative?report narrative Condition: stable Disposition: same day Brief History: Patient is a pleasant [78]year-old [male] with?recurrent right carpal tunnel syndrome.? Patient has been worked up in the outpatient setting findings and physical examination consistent with this.? Patient nerve conduction studies consistent with carpal tunnel syndrome.? Patient has had a prior carpal tunnel release surgery prior this year and had a nerve study done several months after showing recurrent right carpal tunnel syndrome on my examination he does have consistent findings with this and classic carpal tunnel symptoms on examination. We detailed out patient's?risk benefits complication alternatives with surgical and nonsurgical treatment options. Through shared decision making, patient agrees to proceed with surgical intervention of the right carpal tunnel?release revision.? Patient understands and agrees with current plan.? All questions answered.? Patient elects to proceed with surgical intervention with carpal tunnel?release. Procedure: Patient seen and evaluated in the preoperative holding area.? Consent was?reviewed and signed with patient.? Correct extremity was marked.? Patient was seen evaluated by the anesthesia department once cleared for surgery was brought back to the operative suite.? Patient was kept on [facility] in supine position all bony prominences were well-padded patient properly secured to the bed.??Right upper extremity was then placed onto an armboard.? A nonsterile tourniquet was applied to the?RIght upper arm.? Patient underwent anesthesia per the anesthesia department.? Patient's?Right upper extremity was then prepped and draped in standard orthopedic fashion.? Final timeout performed.? Patient?received appropriate preoperative antibiotics. Under sterile aseptic technique patient?received local anesthesia over the preplanned carpal tunnel incision site. Esmarch was used to exsanguinate the?Right upper extremity and tourniquet was insufflated to 250 mmHg. A Extensive open?Right carpal tunnel incision was made.? Starting distally at Christian's cardinal line in line with the fourth?ray extending proximally Broering past the wrist crease and into the distal forearm. Sharp scalpel incision was made through skin and subcutaneous tissue.? Self-retaining?retractor was placed and the palmar fascia was identified.? This was then split longitudinally and direct visualization of the recurrent transverse carpal ligament was then made.? I then utilizing scalpel feathered through the transverse carpal ligament until I entered the floor of the transverse carpal tunnel ligament into the carpal tunnel.? Next I switched to dissection scissors and completed my?release of the transverse carpal ligament distally with care to protect the?recurrent motor branch.? I completely?released into the palmar fat and until no entrapment was noted distally.? Care was made to protect the superficial palmar arch during my distal dissection.?? Next I made an incision proximally. Once I had identified the median nerve distally I placed a [place] underneath this and continued to dissect through the transverse carpal ligament proximally. Once the entirety of the carpal tunnel was released and open it was noted there was significant tethering of patient's forearm fascia as well as palmaris longus tendon as result given the tethering of the palmar fascia as well as the median antebrachial fascia I then utilized Littler dissection scissors to excise this into the distal forearm to where there was no further areas of entrapment this completely released the median nerve in this region. I then did release the palmaris longus as this did have an area that was tethering across the median nerve. This was all performed under direct loupe magnification and patient was found to have a complete lax and fully exposed and decompressed nerve from the Christian's cardinal line to the distal third of the forearm with no areas of entrapment or tethering. There was hourglass shape of the median nerve showing its compression, The rest of the contents of the carpal tunnel were healthy and intact. No masses were noted.? Tendons appeared healthy.? Wound was then thoroughly irrigated.? Tourniquet deflated.? Hemostasis satisfactory with bipolar electrocautery.? I then closed the incision with interrupted nylon stitches.? Xeroform 4 x 4's and a bulky soft dressing was applied.? Volar splint applied given incision went across the wrist crease Patient was then awakened from anesthesia and taken to PACU in stable condition.? Patient tolerated procedure without complications. Disposition: Patient taken to PACU in stable condition?recovering well.? Dressing clean dry and intact.? Patient will?receive appropriate discharge instr uctions as well as pain medication postoperatively.? Patient to follow-up with me in the office in 2 weeks.? They understand they may be nonweightbearing to the?right hand.? Patient should keep incision clean dry and intact.? Patient understands if any questions or concerns may contact the office.
[2023-07-16] MEDS: ipratropium-albuterol 3 mL Neb (08:43)
--- NOTE | 2023-07-16 10:00 | ANE.PACU2 ---
Inpatient post-anesthesia follow up: Airway intact: Yes Vital signs: Temperature 97 F Pulse Rate 72 Respiratory Rate 18 Blood Pressure 156/79 Pulse Oximetry 92 Oxygen Delivery Me thod Room Air Oxygen Flow Rate 6 Fraction of Inspir ed Oxygen Hydration adequate: Yes Nausea and vomiting: No Pain level: 1 Mental status: Baseline
== END 2023-07-16 10:00 | disposition home or self-care (01) ==
PROVIDERS: Anesthesiology; PCP Family Medicine; Visit Provider Student in an Organized Health Care Education/Training Program
PROC: (CPT 64721; principal; 2023-07-16 07:00)
DX: G56.01 Carpal tunnel syndrome, right upper limb (principal); J44.9 Chronic obstructive pulmonary disease, unspecified; I48.91 Unspecified atrial fibrillation; I10 Essential (primary) hypertension; E78.5 Hyperlipidemia, unspecified; Z79.82 Long term (current) use of aspirin; Z79.01 Long term (current) use of anticoagulants; Z87.891 Personal history of nicotine dependence
CPT/HCPCS: 64721; 85025; A7003; J0131; J0690; J2001; J2371; J2704; J2795; J7030

== ENCOUNTER → 2023-10-16 11:29 | Outpatient (BNVA) | payer OTHER, SELFPAY | PROVIDERS: PCP Family Medicine; Visit Provider Student in an Organized Health Care Education/Training Program | DX: M19.011 Primary osteoarthritis, right shoulder | CPT/HCPCS: 73030 ==

== ENCOUNTER 2023-12-31 12:27 | Outpatient (RCR) | payer MEDICARE, SELFPAY | END 2024-01-10 23:59 | disposition home or self-care (01) | LOC: SPT 12:27 | PROVIDERS: PCP Family Medicine; Visit Provider Student in an Organized Health Care Education/Training Program | DX: M75.41 Impingement syndrome of right shoulder (principal) | CPT/HCPCS: 97110; 97161 ==

== ENCOUNTER 2024-01-11 06:00 | Outpatient (RCR) | payer MEDICARE, SELFPAY | END 2024-02-09 23:59 | disposition home or self-care (01) | LOC: SPT 06:00 | PROVIDERS: PCP Family Medicine; Visit Provider Student in an Organized Health Care Education/Training Program | DX: M75.41 Impingement syndrome of right shoulder (principal) | CPT/HCPCS: 95992; 97110 ==

== ENCOUNTER → 2024-02-25 13:06 | Outpatient (BNVA) | payer MEDICARE, SELFPAY | PROVIDERS: PCP Family Medicine; Visit Provider Student in an Organized Health Care Education/Training Program | DX: M19.011 Primary osteoarthritis, right shoulder | CPT/HCPCS: 99214 ==

== ENCOUNTER 2024-03-21 08:36 | Outpatient (CLI) | payer MEDICARE, SELFPAY ==
[2024-03-21 08:58] LABS: Basophils # 0.1 10^3/uL (0.0-0.1); Basophils % 1.4 %; Eosinophils # 0.5 10^3/uL (0.0-0.8); Eosinophils % 6.1 %; Hematocrit 43.7 % (37-53); Lymphocytes # 2.1 10^3/uL (0.8-4.8); Lymphocytes % 28.6 %; Mean Corpuscular Hemoglobin 32.4 pg (27-33); Mean Corpuscular Volume 98.2 fl (82-101); Monocytes # 0.6 10^3/uL (0.2-0.9); Monocytes % 8.3 %; Neutrophils # 4.08 10^3/uL (1.8-7.7); Neutrophils % 55.3 %; Nucleated Red Blood Cells % 0 %; Platelet Count 182 10^3/cmm (157-399); Red Blood Count 4.45 10^6/uL (3.85-5.65); Red Cell Distribution Width 12.3 % (12.1-15.1); White Blood Count 7.37 10^3/uL (3.29-11.43)
[2024-03-21 09:13] LABS: Alanine Aminotransferase 13 U/L (0-41); Albumin Level 3.9 g/dL (3.5-5.2); Alkaline Phosphatase 118 U/L (40-130); Anion Gap 15.2 (5-19); Aspartate Amino Transferase 24 U/L (0-40); Blood Urea Nitrogen 18 mg/dL (8-23); Calcium 9.2 mg/dL (8.5-10.5); Carbon Dioxide 27 mmol/L (22-29); Chloride 103 mmol/L (98-107); Globulin 3.2 g/dL (1.3-4.6); Glucose 107 mg/dL (65-115); Osmolality Calculated 294 mOsm/kg (285-295); Potassium 4.2 mmol/L (3.5-5.1); Sodium 141 mmol/L (136-145); Total Bilirubin 0.8 mg/dL (0.15-1.2); Total Protein 7.1 g/dL (6.6-8.7)
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
[2024-03-21 09:38] LABS: Add Urine Microscopic? NO; Charge for UA Resulting for Rev
[2024-03-21 09:45] LABS: Bilirubin Urine Neg (Negative); Blood Urine Neg (Negative); Glucose Urine UA Norm (Normal); Ketones Urine Negative (Negative); Leukocyte Esterase Urine Negative (Negative); Nitrate Urine Negative (Negative); Protein Urine Neg (Negative); Specific Gravity, Urine 1.005 (1.005-1.030); Urine Appearance Clear (CLEAR); Urine Color Yellow (Yellow); Urobilinogen Urine Norm (Negative); pH Urine 5 (5-7)
== END 2024-03-21 08:37 | disposition home or self-care (01) ==
PROVIDERS: PCP Family Medicine; Visit Provider Student in an Organized Health Care Education/Training Program
DX: Z01.818 Encounter for other preprocedural examination (principal); M19.011 Primary osteoarthritis, right shoulder; M25.811 Other specified joint disorders, right shoulder
CPT/HCPCS: 36415; 73200; 80053; 81003; 85025

== ENCOUNTER → 2024-03-29 09:18 | Outpatient (BNVA) | payer MEDICARE, SELFPAY | PROVIDERS: PCP Family Medicine; Visit Provider Family Medicine | DX: Z01.818 Encounter for other preprocedural examination (principal) | CPT/HCPCS: 93005 ==

== ENCOUNTER 2024-04-18 09:23 | Outpatient (CLI) | payer MEDICARE, SELFPAY ==
[2024-04-18 10:59] LABS: Bilirubin Urine Neg (Negative); Blood Urine Neg (Negative); Glucose Urine UA Norm (Normal); Ketones Urine Negative (Negative); Leukocyte Esterase Urine Negative (Negative); Nitrate Urine Negative (Negative); Protein Urine Neg (Negative); Specific Gravity, Urine 1.005 (1.005-1.030); Urine Appearance Clear (CLEAR); Urine Color Yellow (Yellow); Urobilinogen Urine Norm (Negative); pH Urine 5 (5-7)
[2024-04-18 11:01] LABS: Add Urine Culture? No; RBC Urine RARE /hpf (0-2); Squamous Epithelial Cell Urine RARE /hpf (0-5); WBC Urine RARE /hpf (0-5)
== END 2024-04-18 09:24 | disposition home or self-care (01) ==
LOC: LAB 09:36
PROVIDERS: PCP Family Medicine; Visit Provider Family Medicine
DX: Z01.818 Encounter for other preprocedural examination (principal)
CPT/HCPCS: 81001

== ENCOUNTER 2024-04-25 17:22 | Observation (INO) | payer MEDICARE, SELFPAY ==
[2024-04-25] VITALS (19 sets, daily range): BP systolic 103–160; BP diastolic 40–96; PULSE 85–109; RESP 10–25; TEMP 36.1–36.4; O2SAT 2–99; BMI 32.5
[2024-04-25] MEDS: acetaminophen 1,000 MG/100 ML PIGGYBACK 400 MG IV (11:32)
[2024-04-25] MEDS: lactated ringers 500 ML IV (11:32)
[2024-04-25] MEDS: scopolamine 1.5 Patch 1 PATCH TRANSDERMA (11:38)
[2024-04-25 12:05] LABS: Basophils # 0.1 10^3/uL (0.0-0.1); Eosinophils # 0.3 10^3/uL (0.0-0.8); Eosinophils % 3.4 %; Hematocrit 46.7 % (37-53); Lymphocytes # 3.6 10^3/uL (0.8-4.8); Lymphocytes % 42.2 %; Mean Corpuscular HGB Conc 33.4 g/dL (30-55); Mean Corpuscular Volume 95.9 fl (82-101); Mean Platelet Volume 11.4 fL (7.4-10.4); Monocytes # 0.7 10^3/uL (0.2-0.9); Monocytes % 7.5 %; Neutrophils # 3.94 10^3/uL (1.8-7.7); Neutrophils % 45.7 %; Nucleated Red Blood Cells % 0 %; Platelet Count 171 10^3/cmm (157-399); Red Blood Count 4.87 10^6/uL (3.85-5.65); Red Cell Distribution Width 12.4 % (12.1-15.1); White Blood Count 8.63 10^3/uL (3.29-11.43)
[2024-04-25] MEDS: sodium chloride 0.9% 1,000 ML 30 ML IV (12:07)
--- NOTE | 2024-04-25 12:25 | P.ANESASSM_ITS ---
Pre-Anesthetic Assessment Height/Weight: Height 1.63 m Weight 86.183 kg Temp Pulse Resp BP Pulse Ox O2 Del Method 97.4 F L 85 16 111/83 93 Room Air 04/25/24 11:13 04/25/24 11:13 04/25/24 11:13 04/25/24 11:38 04/25/24 11:13 04/25/24 11:20 Operation Date: 04/25/24 13:00 Proposed Procedures p Total Reverse Shoulder Arthroplasty 25632, M19.011(Right) - Cuong Blackford, DO Was Beta Flex taken within 24 hours: Yes Last intake: Intake Last Liquid Date 04/24/24 Last Liquid Time 23:59 Last Solid Date 04/24/24 Last Solid Time 21:30 Social No alcohol and No tobacco Exam alert, oriented x 3 and clear to auscultation bilaterally Airway Submandibular: within normal limits Cervical ROM: within normal limits Mallampati: Class I Pulmonary Chronic Obstructive Pulmonary Disease and None reported CV/HEM Atrial Fibrillation and Hypertension None reported Hepatic None reported GI None reported Metabolic None reported Musc/skel None reported Anesthetic Plan ASA status: 3 Anesthesia: General Risk of > 500 ml blood loss (7ml/kg in children): Yes, adequate IV access and fluids planned Medications/Allergies Home Medications Medication Instructions Recorded Confirmed Last Taken Type albuterol sulfate 1.25 mg/3 mL 1.25 mg inhalation QID PRN 11/16/19 04/22/24 07/15/23 History solution for nebulization shortness of breath aspirin 81 mg tablet,delayed 81 mg PO DAILY 11/16/19 04/22/24 04/22/24 History release (Adult Low Dose Aspirin) metoprolol tartrate 25 mg tablet 25 mg PO BID #60 tabs 07/08/22 04/22/24 04/25/24 09:00 Rx rosuvastatin 10 mg tablet 10 mg PO DAILY 10/21/22 04/22/24 04/24/24 History acyclovir 400 mg tablet 400 mg PO DAILY 07/15/23 04/22/24 04/24/24 History citalopram 10 mg tablet 10 mg PO DAILY 07/15/23 04/22/24 04/24/24 History amiodarone 200 mg tablet 100 mg (1/2 x 200 mg) PO DAILY #45 11/24/23 04/22/24 04/24/24 Rx tabs gabapentin 600 mg tablet 600 mg PO BID 03/29/24 04/22/24 04/24/24 History midodrine 5 mg tablet 5 mg PO BID 03/29/24 04/22/24 04/24/24 History rivaroxaban 20 mg tablet (Xarelto) 20 mg PO DAILY #90 tabs 04/11/24 04/22/24 04/20/24 Rx albuterol sulfate 90 mcg/actuation 1 inh inhalation QID PRN Shortness 04/22/24 04/22/24 Unknown History breath activated powder inhaler Of Breath furosemide 20 mg tablet 20 mg PO DAILY 04/22/24 04/22/24 04/24/24 History meloxicam 15 mg tablet 15 mg PO DAILY 04/22/24 04/22/24 03/26/24 History Allergies Allergy/AdvReac Type Severity Reaction Status Date / Time Penicillins Allergy Severe SOB and Verified 04/22/24 11:39 rash cortisone Allergy Unknown Unknown Verified 04/22/24 11:39 amoxicillin [From Augmentin] Allergy ADR-Numbnes Verified 04/25/24 11:44 s clavulanic acid Allergy ADR-Numbnes Verified 04/25/24 11:44 [From Augmentin] s ketorolac [From Toradol] Allergy ADR-Vomitin Verified 04/25/24 11:42 g Current Medications Generic Name Dose Route Start Last Admin Trade Name Freq PRN Reason Stop Dose Admin Sodium Chloride 1,000 mls @ 30 mls/hr 04/25/24 11:15 04/25/24 12:07 Sodium Chloride 0.9% IV 04/26/24 11:14 30 mls/hr .Q24H ZORA Administration PFSH Anesthesia Medical History Dizziness Epistaxis Rectal bleeding Atrial fibrillation Anticoagulant long-term use Dyslipidemia COPD (chronic obstructive pulmonary disease) HTN (hypertension) History of cardioversion Surgical History Status post carpal tunnel release Family History Father CAD (coronary artery disease) Stroke Mother CAD (coronary artery disease) Cancer Myocardial infarction Grandfather Diabetes PATERNAL Grandmother Diabetes MATERNAL Social History Smoking and tobacco/nicotine status: former use of tobacco/nicotine Alcohol intake: never Substance/Drug Use: never Data Anesthesia 04/25/24 11:45 04/25/24 11:45 Short CBC 04/25/24 Range/Units 11:45 WBC 8.63 (3.29-11.43) 10^3/uL Hgb 15.60 (11.27-16.99) g/dL Hct 46.7 (37-53) % MCV 95.9 (82-101) fl Plt Count 171 (157-399) 10^3/cmm Neut % (Auto) 45.7 % Neut # (Auto) 3.94 (1.8-7.7) 10^3/uL Cardiac Studies: 2 No Data to Display
[2024-04-25 12:40] LABS: Anion Gap 16.2 (5-19); Blood Urea Nitrogen 25 mg/dL (8-23); Calcium 9.6 mg/dL (8.5-10.5); Carbon Dioxide 25 mmol/L (22-29); Chloride 103 mmol/L (98-107); Creatinine Clr Calc Pharmacy 47.8586; Glucose 103 mg/dL (65-115); Osmolality Calculated 295 mOsm/kg (285-295); Potassium 4.2 mmol/L (3.5-5.1); Sodium 140 mmol/L (136-145)
--- NOTE | 2024-04-25 12:45 | W.PM.OPSFHP ---
Same Day Surgery H&P Indication for Procedure/HPI DATE OF PROCEDURE: April 25, 2024 CHIEF COMPLAINT/INDICATIONFOR SURGICAL PROCEDURE: Right shoulder degenerative joint disease PREOP DIAGNOSIS: Right shoulder degenerative joint disease PLANNED PROCEDURE: Operation Date: 04/25/24 13:00 Proposed Procedures p Total Reverse Shoulder Arthroplasty 28182, M19.011(Right) - Cuong Simons DO Medications/Allergies* Home Medications Medication Instructions Recorded Confirmed Type albuterol sulfate 1.25 mg/3 mL 1.25 mg inhalation QID PRN 11/16/19 04/22/24 History solution for nebulization shortness of breath aspirin 81 mg tablet,delayed 81 mg PO DAILY 11/16/19 04/22/24 History release (Adult Low Dose Aspirin) rosuvastatin 10 mg tablet 10 mg PO DAILY 10/21/22 04/22/24 History acyclovir 400 mg tablet 400 mg PO DAILY 07/15/23 04/22/24 History citalopram 10 mg tablet 10 mg PO DAILY 07/15/23 04/22/24 History gabapentin 600 mg tablet 600 mg PO BID 03/29/24 04/22/24 History midodrine 5 mg tablet 5 mg PO BID 03/29/24 04/22/24 History albuterol sulfate 90 mcg/actuation 1 inh inhalation QID PRN Shortness 04/22/24 04/22/24 History breath activated powder inhaler Of Breath furosemide 20 mg tablet 20 mg PO DAILY 04/22/24 04/22/24 History meloxicam 15 mg tablet 15 mg PO DAILY 04/22/24 04/22/24 History Allergies/Adverse Reactions Allergy/AdvReac Type Severity Reaction Status Date / Time Penicillins Allergy Severe SOB and Verified 04/22/24 11:39 rash cortisone Allergy Unknown Unknown Verified 04/22/24 11:39 amoxicillin [From Augmentin] Allergy ADR-Numbnes Verified 04/25/24 11:44 s clavulanic acid Allergy ADR-Numbnes Verified 04/25/24 11:44 [From Augmentin] s ketorolac [From Toradol] Allergy ADR-Vomitin Verified 04/25/24 11:42 g Current Medications: Generic Name Dose Route Start Last Admin Trade Name Freq PRN Reason Stop Dose Admin Sodium Chloride 1,000 mls @ 30 mls/hr 04/25/24 11:15 04/25/24 12:07 Sodium Chloride 0.9% IV 04/26/24 11:14 30 mls/hr .Q24H ZORA Administration Pertinent History/Comorbid Conditions* Medical History (Updated 10/20/23 @ 23:08 by Cuong Simons DO) Dizziness Epistaxis Rectal bleeding Atrial fibrillation Anticoagulant long-term use Dyslipidemia COPD (chronic obstructive pulmonary disease) HTN (hypertension) History of cardioversion Surgical History (Updated 07/30/23 @ 16:15 by LYDIA Crowley) Status post carpal tunnel release Family History (Updated 11/16/19 @ 09:14 by Juana Collazo RN) Diabetes Grandfather PATERNAL Grandmother MATERNAL CAD (coronary artery disease) Father Mother Myocardial infarction Mother Cancer Mother Stroke Father Social History Smoking and tobacco/nicotine status: former use of tobacco/nicotine Alcohol intake: never Substance/Drug Use: never Pertinent Exam Findings alert, oriented x 3, operative site marked and procedure specific exam findings Please refer to detailed orthopedic examination on 02/25/2024 listed below: Shoulder exam: C-Spine ROM:no pain but stiffness Spurlings: negative ROM: Pain on end range of motion able to tolerate passive roughly up to 160/170 TTP-AC joint, anterior shoulder and bicipital groove as well as lateral shoulder over the rotator cuff footprint and posterior aspect of the shoulder Internal Rotation 5 out of 5 with elbows at the side External Rotation 5 out of 5 with elbows at the side O'Briens: Positive Jobes: Pain with mild giveaway weakness Rees Impingement: Positive Speeds Test: Positive Crossover/Neers test: Positive Recommendations Surgery/Procedure today Other Plans: Here today for surgical intervention ready proceed with right reverse total shoulder arthroplasty. He is clear the preoperative clearance process he understands the ins and outs procedure the risk benefits complication alternatives of surgery and through shared decision-making elects proceed with surgical intervention. All questions have been answered at this time. Plan to proceed with a right reverse total shoulder arthroplasty today. Coding Level of Care Code Acute Code for Evelina Fwrachael
[2024-04-25] MEDS: vancomycin 1,500 MG/300 ML PIGGYBACK 200 MG IV (13:26)
[2024-04-25] MEDS: tranexamic acid 1,000 mg/10mL SDV 1000 MG IV (13:57)
[2024-04-25] MEDS: vancomycin 1,000 MG SDV 1000 MG XX (14:11)
--- NOTE | 2024-04-25 16:11 | W.PM.BPON ---
Date of Procedure: [04/25/2024] Surgeon: Cuong Simons DO Business Banking Relationship Manager(s): Jorge L Simons PA-C Procedure(s) performed: Right reverse total shoulder arthroplasty Right shoulder biceps tenodesis Findings of the procedure(s): Patient was found to have severe right shoulder degenerative joint disease as well as appreciable subscapularis tendon tear and attenuation as well as small tearing of the supraspinatus tendon. Underwent reverse total shoulder arthroplasty and right shoulder bicep tenodesis without issues or complications. Taken to PACU in stable condition. Estimated blood loss: 50 mL Specimen(s) removed: Humeral head resection Post-operative diagnosis: Right shoulder degenerative joint disease
--- NOTE | 2024-04-25 16:13 | P.OP_ITS ---
Operative Report Date of procedure: April 25, 2024 Surgeon: Cuong Simons DO Enlisted Aircrew/Aerial Observer/Gunner: Jorge L Simons PA-C: PA was necessary for assistance in this case with shoulder positioning to execute the procedure, assistance with instrumentation, retraction and protection of neurovascular structures, as well as implant fixation when necessary, assist with wound closure and dressing application. Procedure: Preop Diagnosis?Right shoulder shoulder degenerative joint disease Post-op diagnosis: same Procedure done: ? Right?reverse?total?shoulder arthroplasty Right shoulder biceps tenodesis Implants:? [employer]?reverse?total?shoulder arthroplasty comprehensive system Size 13 mm mini humeral stem 36 mm glenosphere diameter standard offset Glenosphere mini baseplate Central screw?6.5 mm by 35 mm Fixed locking screws (25 mm, 20 mm, 15 mm, 15 mm) Standard mini humeral tray with +0 mm polyethylene thickness Surgeon:? Cuong Simons DO Estimated blood loss:? 50 mL IV fluids:? 900 mL Urine output:? See anesthesia record Complications:? None Findings:? See operative report narrative Condition: stable Disposition: floor Brief History:? Pt is a pleasant 78-year-old male who is worked up in the outpatient setting for chronic Right shoulder arthrtitis.? Pt has failed conservative treatment and? was interested in further treatment options we talked about? continued nonoperative versus operative intervention given pt age and rotator cuff tear on MRI would recommend a Right?reverse?total?shoulder arthroplasty.? Pt has been medically optimized and cleared for surgery by the anesthesia department.? Through shared decision-making pt like to proceed with a Right?reverse?total?shoulder arthroplasty.? All questions been answered at this time once again pt understands the risk benefits complication alternatives the treatment option understanding risk of surgery pt agrees to proceed.? All questions answered. Procedure:? Patient seen evaluated in the preoperative holding area.? Consent was reviewed and signed with patient once again detailed out the ins and outs of the procedure.? Correct extremity was marked.? Final questions answered.? Patient was seen evaluated by Anesthesia Department once cleared for surgery pt was taken back to the operative suite.? pt was placed in supine position all bony prominences well-padded patient was appropriate secured to the bed pt underwent anesthesia per the anesthesia department once appropriately anesthetized he was then subsequently set into a lazy beachchair position utilizing our standard OR table.? Once we confirmed appropriate positioning we then subsequently prepped and draped the Right upper extremity in standard orthopedic fashion.? Final timeout performed.? Patient received appropriate preoperative antibiotics. Standard deltopectoral approach was then made just lateral to the coracoid.? I utilized electrocautery to maintain exact hemostasis throughout my dissection.? I subsequently identified the cephalic vein dissected this out carefully and this was taken medially with Cobell retractor and I entered the deltopectoral interval.? Next I released the clavipectoral fascia and at this point time identified the bicep tendon.? This was then isolated and I opened up the bicipital groove within the interval taken this all the way to its insertion site.? I subsequently released the bicep tendon all this was subsequently maintained I then performed under appropriate tension of bicep tenodesis to the pectoralis muscle and fascia.? The proximal end of the tendon was then resected.? Of note patient had significant attenuation of subscapularis tendon as well as tearing of supraspinatus rotator cuff.? I then subsequently performed a subscapularis remanent peel off of the lesser tuberosity this was tagged with 0 Vicryl suture and utilized for manipulation throughout the case.? I then subsequently performed a complete release in standard fashion with care to stay directly onto bone and protecting axillary nerve throughout the case.? Once standard residual release was performed I then protected the entirety of the humeral head and subsequently began with my humeral stem prep. Canal finder was used just off the articular margin and canal centralizer was satisfactory.? I then subsequently broached up to appropriate depth and canal fit which was determined to be 13.? 13 reamer was used and subsequently brought in plan to guide of 30 degrees retroversion was then placed with my cutting guide pinned into appropriate position and making sure my rotation and version was appropriate once satisfactory and pinned in the place the intramedullary canal reamer was then subsequently removed and an oscillating saw was then used to perform my humeral head resection.? This was then subsequently removed.? I then sequentially broached up to appropriate size which was a size 13 mm humeral stem with care to once again maintained my appropriate version.? Once I was satisfied with this I then placed the metal And the stem in place to maintain appropriate integrity of the humeral head while performing work on the glenoid.?? Next I then placed appropriate retraction posterior inferior posterior superior as well as anterior.? I had excellent visualization of the glenoid at this point time ashly my appropriate position.? I utilized electrocautery and remove the entirety of the labrum so I had full visualization of the glenoid.? I then utilized the [employer] comprehensive targeting guide within with a goal of 5 degree tilt.? Central guidepin was then inserted and confirmed to be in appropriate position confirmed with preop CT plan. once satisfied with this placement I then introduced my reamer and then opened up our porous glenosphere mini baseplate this was impacted in appropriate position and rotation next I then subsequently drilled and measured my central screw and placed in appropriate length 35 mm central screw.? This had excellent fixation and purchase.? At this point time I are removed any small residual osteophytes inferiorly and at this point then I subsequently drilled measured and placed 4 locking screws circumferentially around the mini baseplate size screws were 25 mm, 20 mm, 15 mm, 15 mm.? These all had excellent fixation and I satisfied with baseplate .? Next I then opened up our glenosphere 36 diameter set this to the appropriate offset C giving us roughly 2.5 mm of offset inferiorly this was then impacted and had excellent fixation.? Utilize a tonsil and by hand and we had appropriate fixation of the glenosphere. ?This was then subsequently removed and then I subsequently placed the appropriate trial humeral tray which was trialed with a standard offset onto my trial 13 mm humeral stem this was subsequently reduced.? ? Shoulder had excellent range of motion and stability ? This was determined to be my final implant.? I then subsequently dislocated the shoulder.? I then subsequently removed the trial implantations of the humerus.? Final implants were called and open for of a size 13 mini humeral stem as well as a +0 polyethylene and mini humeral tray.? This was opened and set up appropriately on the back table.? I then subsequently impacted the mini humeral stem size 13 and appropriate position which was exact as our trial implantation once again maintaining our appropriate version that was preset and marked and then next I subsequently dried the trunnion and impacted the appropriate humeral tray with +0 mm thickness poly.? This was then subsequently reduced and had excellent fixation range of motion and stability with appropriate tensioning.? No evidence of instability was noted.? I then subsequently opened Pulsavac and thoroughly irrigated the incision with 3 L of normal saline.? I then subsequently placed a gram of vancomycin powder for infection prophylaxis.? I then subsequently closed the subcutaneous layer with 0 and 2-0 and 3-0 stratrafix was then performed of the skin edges and then reinforce the skin edges with perineo.? A PRUDENCE dressing was then applied.? Sling applied. Patient was then awakened from anesthesia and taken to PACU in stable condition.? Patient tolerated procedure without any complications. Disposition: Patient taken to PACU in stable condition recovering well will be admitted to the floor postoperatively internal medicine will be on board for medical management.? Patient will be nonweightbearing to the Right shoulder.? Sling on in place.? Patient will receive appropriate postoperative pain medication and postop antibiotics, DVT prophylaxis on the floor.? Will receive appropriate discharge structure as well as pain medication DVT prophylaxis.? We will work with PT/OT.? Patient to follow-up with ortho in the office in 2 weeks.
--- NOTE | 2024-04-25 16:19 | XRR_ITS ---
PROCEDURE INFORMATION: Exam: XR Right Shoulder Exam date and time: 04/25/2024 4:28 PM Age: 78 years old Clinical indication: Device placement; Joint replacement hardware; Prior surgery; Surgery date: Post-operative (0-2 days); Surgery type: RT shoulder; Additional info: Postop reverse tsa right, ap grashey, scap y TECHNIQUE: Imaging protocol: Radiologic exam of the right shoulder. Views: 2 or more views. COMPARISON: CT shoulder RT wo con* [id number] 03/21/2024 8:49 AM FINDINGS: Bones/joints: Reverse right shoulder arthroplasty noted in expected alignment. Soft tissues: Normal. XR/XR shoulder RT min 2V* [id number] IMPRESSION: Reverse right shoulder arthroplasty placement in expected alignment.
--- NOTE | 2024-04-25 16:23 | PM.PACU ---
PACU note Narrative: Patient is a 78-year-old male that just underwent a right reverse total shoulder arthroplasty. Patient transferred to PACU in stable condition. Pain is well controlled. shoulder Dressing on , dry and in place. Patient's operative arm is in a shoulder immobilizer. Patient is awake and alert and able to respond to my questions accordingly. Patient's fingers are warm with good perfusion. Patient is able to wiggle fingers. Normal cap refill under 2 seconds. Unable to assess further range of motion in arm due to sling. Sensation to right arm intact. Exam: awake Disposition: admitted
--- NOTE | 2024-04-25 16:28 | P.CONIM_ITS ---
Providers/Reason For Consult 2 Attending Physician: Cuong Simons DO Primary Care Provider: Sreekanth Doherty MD History of Present Illness History of Present Illness Eric Fiore is a 78 year old male Medications/Allergies Home Medications Medication Instructions Recorded Confirmed Last Taken Type albuterol sulfate 1.25 mg/3 mL 1.25 mg inhalation QID PRN 11/16/19 04/22/24 07/15/23 History solution for nebulization shortness of breath aspirin 81 mg tablet,delayed 81 mg PO DAILY 11/16/19 04/22/24 04/22/24 History release (Adult Low Dose Aspirin) metoprolol tartrate 25 mg tablet 25 mg PO BID #60 tabs 07/08/22 04/22/24 04/25/24 09:00 Rx rosuvastatin 10 mg tablet 10 mg PO DAILY 10/21/22 04/22/24 04/24/24 History acyclovir 400 mg tablet 400 mg PO DAILY 07/15/23 04/22/24 04/24/24 History citalopram 10 mg tablet 10 mg PO DAILY 07/15/23 04/22/24 04/24/24 History amiodarone 200 mg tablet 100 mg (1/2 x 200 mg) PO DAILY #45 11/24/23 04/22/24 04/24/24 Rx tabs gabapentin 600 mg tablet 600 mg PO BID 03/29/24 04/22/24 04/24/24 History midodrine 5 mg tablet 5 mg PO BID 03/29/24 04/22/24 04/24/24 History rivaroxaban 20 mg tablet (Xarelto) 20 mg PO DAILY #90 tabs 04/11/24 04/22/24 04/20/24 Rx albuterol sulfate 90 mcg/actuation 1 inh inhalation QID PRN Shortness 04/22/24 04/22/24 Unknown History breath activated powder inhaler Of Breath furosemide 20 mg tablet 20 mg PO DAILY 04/22/24 04/22/24 04/24/24 History meloxicam 15 mg tablet 15 mg PO DAILY 04/22/24 04/22/24 03/26/24 History Allergies Allergy/AdvReac Type Severity Reaction Status Date / Time Penicillins Allergy Severe SOB and Verified 04/22/24 11:39 rash cortisone Allergy Unknown Unknown Verified 04/22/24 11:39 amoxicillin [From Augmentin] Allergy ADR-Numbnes Verified 04/25/24 11:44 s clavulanic acid Allergy ADR-Numbnes Verified 04/25/24 11:44 [From Augmentin] s ketorolac [From Toradol] Allergy ADR-Vomitin Verified 04/25/24 11:42 g Current Medications Generic Name Dose Route Start Last Admin Trade Name Chanceq PRN Reason Stop Dose Admin Sodium Chloride 1,000 mls @ 30 mls/hr 04/25/24 11:15 04/25/24 12:07 Sodium Chloride 0.9% IV 04/26/24 11:14 30 mls/hr .Q24H ZORA Administration PFSH Acute 2 PFSH: Medical History Dizziness Epistaxis Rectal bleeding Atrial fibrillation Anticoagulant long-term use Dyslipidemia COPD (chronic obstructive pulmonary disease) HTN (hypertension) History of cardioversion Surgical History Status post carpal tunnel release Family History Father CAD (coronary artery disease) Stroke Mother CAD (coronary artery disease) Cancer Myocardial infarction Grandfather Diabetes PATERNAL Grandmother Diabetes MATERNAL Social History Smoking and tobacco/nicotine status: former use of tobacco/nicotine Alcohol intake: never Substance/Drug Use: never Vitals/I&O/Wt Last Vital Signs Temp 97.0 F L 04/25/24 16:10 Pulse 95 04/25/24 16:15 Resp 25 H 04/25/24 16:15 BP 110/58 04/25/24 16:15 Pulse Ox 97 04/25/24 16:15 O2 Del Method Simple Mask 04/25/24 16:15 O2 Flow Rate 8 04/25/24 16:15 04/25/24 04/25/24 04/25/24 06:59 14:59 22:59 Intake Total 600 / 600 50 / 650 Output Total 50 / 50 Balance 600 / 600 0 / 600 Weight last 48 hrs Weight 86.183 kg Data 04/25/24 11:45 04/25/24 11:45 Coding Level of Care Code Acute Code for Chg Fwrachael
--- NOTE | 2024-04-25 16:53 | PC.NURSE ---
1648 - taken to outpt in a floor bed to await a floor room
[2024-04-25] MEDS: fentaNYL 50 mcg/mL INJ 2mL IVP (17:02)
--- NOTE | 2024-04-25 17:25 | ANE.PACU2 ---
Inpatient post-anesthesia follow up: Airway intact: Yes Vital signs: Temperature 98.2 F Pulse Rate 105 Respiratory Rate 14 Blood Pressure 118/70 Pulse Oximetry [6 Minute 95 Exercise Test on R oom Air] Pulse Oximetry [Ro om Air at 93 Rest] Pulse Oximetry 95 Oxygen Delivery Me thod Nasal Cannula Oxygen Flow Rate 1 Fraction of Inspir ed Oxygen Hydration adequate: Yes Nausea and vomiting: No Pain level: 1 Mental status: Baseline
[2024-04-25] MEDS: chlorhexidine gluconate 0.12% Btl 473 mL 30 ML MUCOUS MEM ×2 (17:55→21:58)
[2024-04-25] MEDS: acetaminophen 500 mg Tablet 1000 MG PO (17:56)
[2024-04-25] MEDS: iron polysaccharide complex 150 mg Capsule PO (17:56)
[2024-04-25] MEDS: metoprolol tartrate 25 mg Tablet PO (17:56)
[2024-04-25] MEDS: calcium carb-vit d 600mg/400unit 1 Tablet 1 EACH PO (17:56)
[2024-04-25] MEDS: docusate sodium 100 mg Capsule PO (17:56)
[2024-04-25] MEDS: lactated ringers 1,000 ML 75 ML IV (18:13)
[2024-04-25] MEDS: clindamycin 900 MG/50 ML PREMIX 100 MG IV (18:19)
[2024-04-25] MEDS: oxyCODONE 5 mg IR Tab/Cap PO (20:25)
[2024-04-25] MEDS: tranexamic acid 1,000 MG/100 ML PREMIX 600 MG IV (21:58)
[2024-04-26] VITALS (8 sets, daily range): BP systolic 116–118; BP diastolic 70–77; PULSE 100–105; RESP 14–20; TEMP 36.8; O2SAT 2–95
[2024-04-26] MEDS: oxyCODONE 5 mg IR Tab/Cap PO ×2 (02:02→08:11)
[2024-04-26] MEDS: acetaminophen 500 mg Tablet 1000 MG PO ×2 (02:03→09:49)
[2024-04-26] MEDS: clindamycin 900 MG/50 ML PREMIX 100 MG IV (02:03)
[2024-04-26 05:17] LABS: Basophils % 0.1 %; Lymphocytes # 1.9 10^3/uL (0.8-4.8); Lymphocytes % 14.9 %; Mean Corpuscular HGB Conc 32.2 g/dL (30-55); Mean Corpuscular Hemoglobin 31.6 pg (27-33); Mean Corpuscular Volume 98.1 fl (82-101); Monocytes # 0.4 10^3/uL (0.2-0.9); Monocytes % 3.5 %; Neutrophils # 10.05 10^3/uL (1.8-7.7); Neutrophils % 81.1 %; Nucleated Red Blood Cells % 0 %; Platelet Count 150 10^3/cmm (157-399); Red Blood Count 3.67 10^6/uL (3.85-5.65); Red Cell Distribution Width 12.4 % (12.1-15.1); White Blood Count 12.39 10^3/uL (3.29-11.43)
[2024-04-26 05:45] LABS: Blood Urea Nitrogen 22 mg/dL (8-23); Calcium 8.7 mg/dL (8.5-10.5); Carbon Dioxide 19 mmol/L (22-29); Chloride 99 mmol/L (98-107); Creatinine Clr Calc Pharmacy 51.8468; Glucose 145 mg/dL (65-115); Osmolality Calculated 282 mOsm/kg (285-295); Sodium 133 mmol/L (136-145)
[2024-04-26 05:48] LABS: Anion Gap 19.4 (5-19); Potassium 4.4 mmol/L (3.5-5.1)
[2024-04-26] MEDS: lactated ringers 1,000 ML 75 ML IV (07:45)
[2024-04-26] MEDS: rivaroxaban 10 mg Tablet 20 MG PO (08:13)
[2024-04-26] MEDS: amiodarone 200 mg Tablet 100 MG PO (08:13)
[2024-04-26] MEDS: metoprolol tartrate 25 mg Tablet PO (08:14)
[2024-04-26] MEDS: docusate sodium 100 mg Capsule PO (08:14)
[2024-04-26] MEDS: multivitamin therapeutic Tablet 1 TAB PO (08:14)
[2024-04-26] MEDS: iron polysaccharide complex 150 mg Capsule PO (08:14)
[2024-04-26] MEDS: calcium carb-vit d 600mg/400unit 1 Tablet 1 EACH PO (08:14)
--- NOTE | 2024-04-26 08:38 | P.DS_ITS ---
Discharge Providers Date of Admission: 04/25/24 17:22 Date of Discharge: April 26, 2024 Attending Provider at Admission: Cuong Simons DO Attending Provider at Discharge: Cuong Simons DO Consults: Hospitalist Dr. Escobar Primary Care Provider: Sreekanth Doherty MD Reason for Visit Reason for Visit: M19.011 Brief History: Status post right reverse total shoulder arthroplasty Hospital Course Hospital Course Patient was brought to the preoperative area with plan for right reverse total shoulder arthroplasty seen evaluated by anesthesia once cleared for surgery taken back to the operative suite patient underwent anesthesia per anesthesia department pt underwent a right reverse total shoulder arthroplasty without complications. Pt was subsequently taken to PACU in stable condition recovering well in PACU and was admitted to the floor postoperatively. Pt received appropriate postoperative pain medication DVT prophylaxis, perioperative antibiotics. Pt was instructed nonweightbearing to right upper extremity mainta in sling work with PT/OT. Pt progressed well postoperatively labs were monitored daily dressing was changed as needed maintain swati dressing with good seal throughout the hospitalization. Internal medicine was on board to assist with medical management. Patient subsequently on postoperative day [1] was determined that patient was stable for discharge from an orthopedic standpoint. Patient was subsequently discharged home. Given appropriate discharge instructions as well as pain medication DVT prophylaxis. Follow-up in the orthopedic office in 2 weeks. Physical Exam Narrative: Examination right shoulder dressing/swati incisional VAC sewn in place with good seal no signs of saturation normal postoperative swelling about the right shoulder he is able to wiggle the fingers perform AIN/PIN/radial/ulnar/median nerve, he is able to perform biceps flexion and flexion of the elbow in the sling as well as axillary sensation and firing of the rear deltoid muscle for axillary motor is intact. Distal pulses are palpable hand is warm well-perfused Discharge Data Studies Completed and Pending Completed Studies During Hospitalization Category Date Time Status XR shoulder RT min 2V* [id number] Routine Exams 04/25/24 16:19 Completed Pending at discharge Category Date Time Status Basic Metabolic Panel AM LABS Lab 04/27/24 04:00 Ordered Basic Metabolic Panel AM LABS Lab 04/28/24 04:00 Ordered Complete Blood Count w/Auto AM LABS Lab 04/27/24 04:00 Ordered Complete Blood Count w/Auto AM LABS Lab 04/28/24 04:00 Ordered Retype for Patiets ABO/Rh Routine Lab 04/25/24 12:43 Ordered Radiology Impressions Shoulder X-Ray 04/25/24 16:19 IMPRESSION: Reverse right shoulder arthroplasty placement in expected alignment. Laboratory Results WBC 12.39 10^3/uL (3.29-11.43) H 04/26/24 05:03 RBC 3.67 10^6/uL (3.85-5.65) L 04/26/24 05:03 Hgb 11.60 g/dL (11.27-16.99) 04/26/24 05:03 Hct 36.0 % (37-53) L 04/26/24 05:03 MCV 98.1 fl (82-101) 04/26/24 05:03 MCH 31.6 pg (27-33) 04/26/24 05:03 MCHC 32.2 g/dL (30-55) 04/26/24 05:03 RDW 12.4 % (12.1-15.1) 04/26/24 05:03 Plt Count 150 10^3/cmm (157-399) L 04/26/24 05:03 MPV 11.0 fL (7.4-10.4) H 04/26/24 05:03 Neut % (Auto) 81.1 % 04/26/24 05:03 Lymph % (Auto) 14.9 % 04/26/24 05:03 Mckean % (Auto) 3.5 % 04/26/24 05:03 Eos % (Auto) 0.0 % 04/26/24 05:03 Baso % (Auto) 0.1 % 04/26/24 05:03 Neut # (Auto) 10.05 10^3/uL (1.8-7.7) H 04/26/24 05:03 Lymph # (Auto) 1.9 10^3/uL (0.8-4.8) 04/26/24 05:03 Mckean # (Auto) 0.4 10^3/uL (0.2-0.9) 04/26/24 05:03 Eos # (Auto) 0.0 10^3/uL (0.0-0.8) 04/26/24 05:03 Baso # (Auto) 0.0 10^3/uL (0.0-0.1) 04/26/24 05:03 Nucleated RBC % (auto) 0 % 04/26/24 05:03 Nucleated RBCs # 0.0 /100WBC 04/26/24 05:03 Sodium 133 mmol/L (136-145) L 04/26/24 05:03 Potassium 4.4 mmol/L (3.5-5.1) 04/26/24 05:03 Chloride 99 mmol/L (98-107) 04/26/24 05:03 Carbon Dioxide 19 mmol/L (22-29) L 04/26/24 05:03 Anion Gap 19.4 (5-19) H 04/26/24 05:03 BUN 22 mg/dL (8-23) 04/26/24 05:03 Creatinine 1.2 mg/dL (0.7-1.2) 04/26/24 05:03 GFR Calculation Not Reportable 04/26/24 05:03 Glucose 145 mg/dL (65-115) H 04/26/24 05:03 Calculated Osmolality 282 mOsm/kg (285-295) L 04/26/24 05:03 Calcium 8.7 mg/dL (8.5-10.5) 04/26/24 05:03 Blood Type O Negative 04/25/24 11:45 Rho(D) Type Rh negative 04/25/24 11:45 Antibody Screen Negative 04/25/24 11:45 Vitals Last Vital Signs Temp 98.2 F 04/26/24 07:30 Pulse 104 H 04/26/24 08:35 Resp 16 04/26/24 08:35 BP 116/77 04/26/24 07:30 Pulse Ox 92 04/26/24 08:35 O2 Del Method Nasal Cannula 04/26/24 08:35 O2 Flow Rate 1 04/26/24 08:35 Discharge Plan Discharge Patient Disposition: Home Health Service Condition: Stable Prescriptions: New ondansetron 4 mg tablet,disintegrating 4 mg PO Q8H PRN (Reason: nausea and vomiting) 3 Days Qty: 9 0RF oxycodone 5 mg tablet 5 mg PO Q6H PRN (Reason: pain postop) 7 Days Qty: 28 0RF Continued albuterol sulfate 1.25 mg/3 mL solution for nebulization 1.25 mg INHALATION QID PRN (Reason: shortness of breath) aspirin [Adult Low Dose Aspirin] 81 mg tablet,delayed release (DR/EC) 81 mg PO DAILY gabapentin 600 mg tablet 600 mg PO BID midodrine 5 mg tablet 5 mg PO BID rosuvastatin 10 mg tablet 10 mg PO DAILY metoprolol tartrate 25 mg tablet 25 mg PO BID Qty: 60 0RF Rx Instructions: MUST have follow-up for further refills amiodarone 200 mg tablet 100 mg PO DAILY Qty: 45 3RF Xarelto 20 mg tablet 20 mg PO DAILY Qty: 90 3RF meloxicam 15 mg tablet 15 mg PO DAILY Rx Instructions: TAKE 1 TABLET BY MOUTH EVERY DAY FOR pain furosemide 20 mg tablet 20 mg PO DAILY Rx Instructions: TAKE 1 TABLET BY MOUTH EVERY DAY albuterol sulfate 90 mcg/actuation aerosol powdr breath activated 1 inh INHALATION QID PRN (Reason: Shortness Of Breath) acyclovir 400 mg tablet 400 mg PO DAILY citalopram 10 mg tablet 10 mg PO DAILY Discharge Orders: Discharge Order (Routine); Ordered 04/26/24 Ordered By: Cuong Simons Referrals: Sreekanth Doherty MD [Primary Care Provider] - 05/02/24 1:30 pm Cuong Simons DO [Physician] - 05/17/24 9:00 am Discharge Diet: Regular Discharge Activity: Limit activity as instructed Patient Instructions: Oxycodone/Acetaminophen (By mouth) (Percocet, Roxicet), Ondansetron (By mouth), Acute Wound Care (DC), Shoulder Arthroplasty (DC), Opioid Safety, Post Anesthesia Care Activity Restrictions/Additional Instructions: Orthopedic discharge instructions: Keep dressing on and intact. You have a Swati dressing with battery pack on it. The battery pack lasts for about 5 to 7 days and when battery goes you can remove dressing. If you are going to shower detach battery pack from dressing and then reattach after shower. May remove swati dressing after the 7 days and then reapply a new dry dressing over the incision Keep incision clean dry and intact, no baths or soaks. Keep arm in shoulder sling for the next 4-6 weeks. To prevent frozen shoulder you can take arm out of sling and let it hang down and do pendulum swings. No active Range of motion. Encourage elbow range of motion to prevent elbow stiffness No weight-bear to the operative extremity. Ice and elevate as needed for pain and swelling Take pain medication as prescribed Take antinausea medication as needed Continue taking your daily Xarelto for blood clot prevention No baths or soaks Follow-up in the orthopedic office in 2 weeks Contact the office for any questions or concerns Discharge Attestations Time Spent in Discharge Care*: less than 30 min Quality Metrics Clinical Quality Measures [ No reported AMI, CVA or VTE this stay] Coding Level of Care Code Acute Code for Evelina Car
--- NOTE | 2024-04-26 09:14 | PC.CHAP ---
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 visit [] Patient/Family/Request visit [] Outpatient visit [] Follow-up visit [] Physician referral [] Code/Alert [X] Routine visit [] Staff referral [] Actively dying [] Patient sleeping [] Family support [] [] Out of room [] Palliative care [] [] Receiving care in room [] Pre-surgical visit [] Trauma [] Long length of stay [] ICU visit [] Other: Relational/Emotional Strength [X] Patient feels connected with others/family/visitors/staff [] Distress [] Loneliness/isolation [] Abandonment Spirituality of Patient [X] Person of Stefani [] Attends [facility] of their Stefani [X] Believes in Prayer [] Reads Bible or Evangelical materials [] There are Spiritual issues to be addressed Hand Alterations Tailor Interventions [X] Prayer [X] Active listening [] Non-anxious presence [X] Spiritual/emotional support [] Crisis/trauma care [] Spiritual counseling [] Bereavement support [] Provided bereavement packet [] Provided Bible/devotional materials [] Provided toy/stuffed animal, coloring book to patient or family member [] Provided Communion [] Anointing/[place] [] Salvation [X] Completed spiritual assessment [] Other: Impact on Illness or Injury [] Angry [] Fearful [] Anxious [] Often cries [] Exhaustion [] Unable to work [] Unable to attend denominational [] Unable to walk/stand [] Unable to read [] Unable to drive [] Unable to eat/drink [] Unable to sleep [] Unable to be with family [] Patient intubated [] Other: Summary Time spent with patient 5 MIN
[2024-04-26] MEDS: chlorhexidine gluconate 0.12% Btl 473 mL 30 ML MUCOUS MEM (09:49)
[2024-04-26] MEDS: ondansetron 2 mg/ML SDV 2 mL 4 MG IVP (09:49)
== END 2024-04-26 11:15 | disposition home health service (06) ==
LOC: MEDSURG 17:49
PROVIDERS: Physician Assistant; Admitting Provider Student in an Organized Health Care Education/Training Program; PCP Family Medicine; Visit Provider Student in an Organized Health Care Education/Training Program
PROC: (CPT 23472; principal; 2024-04-25 12:50)
PROC: (CPT 23430; 2024-04-25 12:50)
DX: M19.011 Primary osteoarthritis, right shoulder (principal); J44.9 Chronic obstructive pulmonary disease, unspecified; I48.91 Unspecified atrial fibrillation; I10 Essential (primary) hypertension; Z79.82 Long term (current) use of aspirin; E78.5 Hyperlipidemia, unspecified; Z79.01 Long term (current) use of anticoagulants; Z87.891 Personal history of nicotine dependence
CPT/HCPCS: 23430; 23472; 36415; 73030; 80048; 85025; 86850; 86900; 94760; 97166; C1713; C1776; G0378; J0131; J1100; J1170; J2405; J2704; J2710; J3010; J3370; J3490; J7030; J7120

== ENCOUNTER → 2024-05-04 11:21 | Outpatient (BNVA) | payer MEDICARE, SELFPAY | PROVIDERS: PCP Family Medicine; Visit Provider Internal Medicine Cardiovascular Disease | DX: I48.11 Longstanding persistent atrial fibrillation (principal); Z98.890 Other specified postprocedural states; I10 Essential (primary) hypertension; E78.5 Hyperlipidemia, unspecified; Z79.01 Long term (current) use of anticoagulants; Z87.891 Personal history of nicotine dependence | CPT/HCPCS: 99213 ==

== ENCOUNTER → 2024-05-17 08:54 | Outpatient (BNVA) | payer MEDICARE, SELFPAY | PROVIDERS: PCP Family Medicine; Visit Provider Student in an Organized Health Care Education/Training Program | DX: Z96.611 Presence of right artificial shoulder joint (principal) | CPT/HCPCS: 73030; 99024 ==

== ENCOUNTER 2024-05-26 08:05 | Outpatient (RCR) | payer MEDICARE, SELFPAY | END 2024-06-11 23:59 | disposition home or self-care (01) | LOC: SPT 08:05 | PROVIDERS: Visit Provider Student in an Organized Health Care Education/Training Program | DX: Z47.1 Aftercare following joint replacement surgery (principal); Z96.611 Presence of right artificial shoulder joint | CPT/HCPCS: 97110; 97161 ==

== ENCOUNTER → 2024-06-07 12:59 | Outpatient (BNVA) | payer MEDICARE, SELFPAY | PROVIDERS: PCP Family Medicine; Visit Provider Student in an Organized Health Care Education/Training Program | DX: Z96.611 Presence of right artificial shoulder joint (principal) | CPT/HCPCS: 73030 ==

== ENCOUNTER 2024-06-12 06:09 | Outpatient (RCR) | payer MEDICARE, SELFPAY | END 2024-07-11 23:59 | disposition home or self-care (01) | LOC: SPT 06:09 | PROVIDERS: PCP Family Medicine; Visit Provider Student in an Organized Health Care Education/Training Program | DX: Z47.1 Aftercare following joint replacement surgery (principal); Z96.611 Presence of right artificial shoulder joint | CPT/HCPCS: 97110 ==

== ENCOUNTER 2024-07-12 06:00 | Outpatient (RCR) | payer MEDICARE, SELFPAY | END 2024-08-11 23:59 | disposition home or self-care (01) | LOC: SPT 06:00 | PROVIDERS: PCP Family Medicine; Visit Provider Student in an Organized Health Care Education/Training Program | DX: Z47.1 Aftercare following joint replacement surgery (principal); Z96.611 Presence of right artificial shoulder joint | CPT/HCPCS: 97110 ==

== ENCOUNTER 2024-08-12 06:00 | Outpatient (RCR) | payer MEDICARE, SELFPAY | END 2024-09-10 23:59 | disposition home or self-care (01) | LOC: SPT 06:00 | PROVIDERS: PCP Family Medicine; Visit Provider Student in an Organized Health Care Education/Training Program | DX: Z47.1 Aftercare following joint replacement surgery (principal); Z96.611 Presence of right artificial shoulder joint | CPT/HCPCS: 99213 ==

== ENCOUNTER → 2024-08-12 09:58 | Outpatient (BNVA) | payer MEDICARE, SELFPAY | PROVIDERS: PCP Family Medicine; Visit Provider Student in an Organized Health Care Education/Training Program | DX: Z96.611 Presence of right artificial shoulder joint (principal) | CPT/HCPCS: 73030 ==

== ENCOUNTER → 2024-12-07 13:16 | Outpatient (BNVA) | payer MEDICARE, SELFPAY | PROVIDERS: PCP Family Medicine; Visit Provider Internal Medicine Cardiovascular Disease | DX: I48.11 Longstanding persistent atrial fibrillation (principal); I10 Essential (primary) hypertension; E78.5 Hyperlipidemia, unspecified; Z79.01 Long term (current) use of anticoagulants; Z87.891 Personal history of nicotine dependence | CPT/HCPCS: 99214 ==

== ENCOUNTER 2025-01-25 08:43 | Outpatient (CLI) | payer MEDICARE, SELFPAY ==
--- NOTE | 2025-01-25 08:46 | MR_ITS ---
WS: [id number] MRI LUMBAR SPINE NONCONTRAST TECHNIQUE: Sagittal T1, T2 and STIR imaging. Axial T1 and T2 imaging. CLINICAL INFORMATION: LOW BACK PAIN COMPARISON: None. FINDINGS: Mild lumbar curve. No acute compression. L1-L2: Narrowing of the LEFT subarticular recess. Mild LEFT foraminal narrowing. L2-L3: Central disc bulging mild central canal stenosis. Impingement of the subarticular recess bilaterally. Moderate facet arthropathy. Mild bilateral foraminal narrowing. L3-L4: Disc bulging with mild central canal stenosis and impingement of the subarticular recess bilaterally. Mild facet arthropathy. Foramina are patent. L4-L5: Slight anterolisthesis. Mild disc bulging with slight effacement of the ventral thecal sac. Moderate to advanced facet arthropathy. Foramina are patent. L5-S1: Moderate facet arthropathy. Spinal canal and foramina are patent. Visualized pelvic bony structures: Normal. Paravertebral soft tissues: Normal. MR/MR lumbar spine wo con* [id number] IMPRESSION: 1. Mild lumbar curve. No acute compression. 2. Mild central canal stenosis L2-3 with impingement on the RIGHT greater than LEFT subarticular recess and traversing L3 nerve roots. 3. Mild central canal stenosis with narrowing of the subarticular recess L3-4. 4. Advanced facet arthropathy at L4-5.
== END 2025-01-25 08:44 | disposition home or self-care (01) ==
PROVIDERS: PCP Family Medicine; Visit Provider Family Medicine
DX: M43.8X6 Other specified deforming dorsopathies, lumbar region (principal); M48.061 Spinal stenosis, lumbar region without neurogenic claudication; M47.896 Other spondylosis, lumbar region; M51.369 Other intervertebral disc degeneration, lumbar region without mention of lumbar back pain or lower extremity pain; M47.897 Other spondylosis, lumbosacral region
CPT/HCPCS: 72148

== ENCOUNTER 2025-03-03 16:18 | Emergency (ER) | payer MEDICARE, SELFPAY ==
[2025-03-03 16:27] VITALS: BP 150/76; PULSE 84; RESP 17; TEMP 36.8; O2SAT 98; BMI 33.3
--- NOTE | 2025-03-03 16:31 | XRR_ITS ---
PROCEDURE INFORMATION: Exam: XR Right Wrist Exam date and time: 03/03/2025 4:49 PM Age: 79 years old Clinical indication: Injury or trauma; Fall; Blunt trauma (contusions or hematomas); Wrist; Right; Prior surgery; Surgery date: 6+ months; Surgery type: Carpal tunnel release TECHNIQUE: Imaging protocol: Radiologic exam of the right wrist. Views: 3 or more views. COMPARISON: No relevant prior studies available. FINDINGS: Bones/joints: Osseous structures are intact. Negative for fracture. Soft tissues: Normal. XR/XR wrist RT min 3V* [id number] IMPRESSION: No acute findings.
--- NOTE | 2025-03-03 16:31 | XRR_ITS ---
PROCEDURE INFORMATION: Exam: XR Left Wrist Exam date and time: 03/03/2025 4:47 PM Age: 79 years old Clinical indication: Injury or trauma; Fall; Blunt trauma (contusions or hematomas); Wrist; Left; Prior surgery; Surgery date: 6+ months; Surgery type: Carpal tunnel release TECHNIQUE: Imaging protocol: Radiologic exam of the left wrist. Views: 3 or more views. COMPARISON: No relevant prior studies available. FINDINGS: Bones/joints: Osseous structures are intact. Negative for fracture. 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 Soft tissues: Normal. XR/XR wrist LT min 3V* [id number] IMPRESSION: No acute findings.
--- NOTE | 2025-03-03 16:31 | CTR_ITS ---
PROCEDURE INFORMATION: Exam: CT Head Without Contrast Exam date and time: 03/03/2025 4:44 PM Age: 79 years old Clinical indication: Injury or trauma; Fall; Blunt trauma (contusions or hematomas); Without loss of consciousness TECHNIQUE: Imaging protocol: Computed tomography of the head without contrast. Radiation optimization: All CT scans at this facility use at least one of these dose optimization techniques: automated exposure control; mA and/or kV adjustment per patient size (includes targeted exams where dose is matched to clinical indication); or iterative reconstruction. COMPARISON: CT facial bones wo con* [id number] 03/03/2025 4:44 PM RADIATION DOSE METRICS: Total DLP (mGy-cm): 1149.2 FINDINGS: Brain: No hemorrhage. No edema. Mild diffuse cerebral atrophy and sequela of chronic small vessel ischemic disease. No mass effect. Cerebral ventricles: No ventriculomegaly. Paranasal sinuses: Visualized sinuses are unremarkable. No fluid levels. Mastoid air cells: Visualized mastoid air cells are well aerated. Bones: Unremarkable. No acute fracture. Soft tissues: Unremarkable. CT/CT head wo con* [id number] IMPRESSION: No acute intracranial abnormality.
--- NOTE | 2025-03-03 16:32 | W.ED.FALL ---
HPI - Fall General: Chief Complaint: Fall Stated Complaint: fall outside of [facility].O.[facility].E. Time Seen by Provider: 03/03/25 16:29 Source: patient Mode of arrival: ambulatory Limitations: no limitations History of Present Illness: 79-year-old male states that he tripped and fell. He states he did hit his chin has some pain in the right side of his face chin slight headache states he also did try to catch it with both arms and has pain in both wrists. Rates the pain 4-10 denies any neck pain denies any hip pain. Associated symptoms-after fall: Reports headache(s); Denies abdominal pain, chest pain or neck pain Related Data Home Medications ?Medication ?Instructions ?Recorded ?Confirmed albuterol sulfate 1.25 mg/3 mL 1.25 mg inhalation QID PRN 11/16/19 12/07/24 solution for nebulization shortness of breath rosuvastatin 10 mg tablet 10 mg PO DAILY 10/21/22 12/07/24 acyclovir 400 mg tablet 400 mg PO DAILY 07/15/23 12/07/24 citalopram 10 mg tablet 10 mg PO DAILY 07/15/23 12/07/24 gabapentin 600 mg tablet 600 mg PO BID 03/29/24 12/07/24 midodrine 5 mg tablet 5 mg PO BID 03/29/24 12/07/24 albuterol sulfate 90 mcg/actuation 1 inh inhalation QID PRN Shortness 04/22/24 12/07/24 breath activated powder inhaler Of Breath clindamycin HCl 300 mg capsule 300 mg PO BID PRN 12/07/24 Previous Rx's ?Medication ?Instructions ?Recorded metoprolol tartrate 25 mg tablet 25 mg PO BID #60 tabs 07/08/22 amiodarone 200 mg tablet 100 mg (1/2 x 200 mg) PO DAILY #45 10/17/24 tabs furosemide 20 mg tablet 20 mg PO DAILY #90 tabs 11/28/24 rivaroxaban 20 mg tablet (Xarelto) 20 mg PO DAILY #90 tabs 12/07/24 Allergies Allergy/AdvReac Type Severity Reaction Status Date / Time Penicillins Allergy Severe SOB and Verified 12/07/24 13:33 rash cortisone Allergy Unknown Unknown Verified 12/07/24 13:33 amoxicillin (From Augmentin) Allergy ADR-Numbnes Verified 12/07/24 13:33 s clavulanic acid (From Allergy ADR-Numbnes Verified 12/07/24 13:33 Augmentin) s ketorolac (From Toradol) Allergy ADR-Vomitin Verified 12/07/24 13:33 g meloxicam Allergy ADR-Itching Verified 12/07/24 13:33 Review of Systems Const: Denies: fever(s), chills, body aches or change in appetite ENMT: Denies: throat pain or dental pain Card: Denies: chest pain Resp: Denies: dyspnea GI: Denies: abdominal pain, nausea, vomiting or diarrhea Musc: Reports: extremity pain; Denies: neck pain or back pain Skin/Breast: Denies: rash Neuro: Reports: headache(s) PFSH ED PFSH: Medical History Dizziness Epistaxis Rectal bleeding Atrial fibrillation Anticoagulant long-term use Dyslipidemia COPD (chronic obstructive pulmonary disease) HTN (hypertension) History of cardioversion Surgical History Status post carpal tunnel release Family History Father CAD (coronary artery disease) Stroke Mother CAD (coronary artery disease) Cancer Myocardial infarction Grandfather Diabetes PATERNAL Grandmother Diabetes MATERNAL Social History Smoking and tobacco/nicotine status: former use of tobacco/nicotine Alcohol intake: never Substance/Drug Use: never Physical Exam Const: COMMON NORMALS: no acute distress, patient oriented x3 and healthy appearing HENMT: COMMON NORMALS: atraumatic HEAD & SCALP: atraumatic OTHER: abrasion to right face and head Eye: COMMON NORMALS: Equal, round and reactive pupils present and EOMs intact bilaterally PUPIL: Yes Equal, round and reactive pupils present Neck/C-Spine: COMMON NORMALS: full ROM and supple CERVICAL SPINE: No Cervical spine tenderness Chest: COMMONS NORMALS: normal inspection of the chest Resp: COMMON NORMALS: normal respiratory effort, No retractions, No use of accessory muscles and clear to auscultation bilaterally AUSCULTATION: clear to auscultation bilaterally Cardio: COMMON NORMALS: regular rate, regular rhythm and No murmurs present (Cardio) RATE: regular rate RHYTHM: regular rhythm Extremity: COMMON NORMALS: full ROM NARRATIVE EXTREMITY EXAM: Tenderness bilateral wrist no obvious deformities Neuro: COMMON NORMALS: patient oriented x3, moves all extremities and no focal motor deficits Psych: COMMON NORMALS: mental status grossly normal, Normal thought process present and cooperative THOUGHT PROCESS: Normal thought process present Skin: COMMON NORMALS: no rashes or lesions noted and no wounds GENERAL SKIN EXAM: no rashes or lesions noted Course Vital Signs: Vital signs: Vital Signs Temperature 98.3 F 03/03/25 16:27 Pulse Rate 86 03/03/25 17:40 Respiratory Rate 17 03/03/25 16:27 Blood Pressure 140/72 03/03/25 17:40 Pulse Oximetry 94 03/03/25 17:40 Oxygen Delivery Me thod Room Air 03/03/25 16:27 MDM - Fall Medical Decision Making Patient presents here with facial contusions head injury and wrist pain from a fall imaging here is negative he stable for discharge Medical Records I reviewed the patient's medical records. Lab Data Radiology Impressions Head CT 03/03/25 16:31 IMPRESSION: No acute intracranial abnormality. Wrist X-Ray 03/03/25 16:31 IMPRESSION: No acute findings. Face CT 03/03/25 16:33 IMPRESSION: Unremarkable mandible. All radiology interpretation(s) finalized by discharge Discharge Plan Discharge Patient Disposition: Home Clinical Impression: Fall, Contusion of face Condition: Stable Prescriptions: No Action albuterol sulfate 1.25 mg/3 mL solution for nebulization 1.25 mg INHALATION QID PRN (Reason: shortness of breath) gabapentin 600 mg tablet 600 mg PO BID midodrine 5 mg tablet 5 mg PO BID clindamycin HCl 300 mg capsule 300 mg PO BID PRN Rx Instructions: take both capsules one hour prior to dental work- Xarelto 20 mg tablet 20 mg PO DAILY Qty: 90 3RF rosuvastatin 10 mg tablet 10 mg PO DAILY metoprolol tartrate 25 mg tablet 25 mg PO BID Qty: 60 0RF Rx Instructions: MUST have follow-up for further refills amiodarone 200 mg tablet 100 mg PO DAILY Qty: 45 3RF furosemide 20 mg tablet 20 mg PO DAILY Qty: 90 3RF Rx Instructions: TAKE 1 TABLET BY MOUTH EVERY DAY albuterol sulfate 90 mcg/actuation aerosol powdr breath activated 1 inh INHALATION QID PRN (Reason: Shortness Of Breath) acyclovir 400 mg tablet 400 mg PO DAILY citalopram 10 mg tablet 10 mg PO DAILY Discharge Orders: Discharge ED (Routine); Ordered 03/03/25 Ordered By: Efrain Arango Referrals: Sreekanth Doherty MD [Primary Care Provider, [facility]] - 4-7 days Discharge Diet: Advance as tolerated Discharge Activity: Resume usual activity Patient Instructions: Contusion in Adults (ED) Print Language: Bur[place]ian Coding Level of Care Code ED Test Desk Operator for Evelina Car
--- NOTE | 2025-03-03 16:33 | CTR_ITS ---
PROCEDURE INFORMATION: Exam: CT Maxillofacial Without Contrast; Mandible Exam date and time: 03/03/2025 4:44 PM Age: 79 years old Clinical indication: Injury or trauma; Fall; Blunt trauma (contusions or hematomas); Jaw; Bilateral TECHNIQUE: Imaging protocol: Computed tomography maxillofacial without contrast. Exam focused on the mandible. Radiation optimization: All CT scans at this facility use at least one of these dose optimization techniques: automated exposure control; mA and/or kV adjustment per patient size (includes targeted exams where dose is matched to clinical indication); or iterative reconstruction. COMPARISON: CT head wo con* [id number] 03/03/2025 4:44 PM RADIATION DOSE METRICS: Total DLP (mGy-cm): 509.8 FINDINGS: Bones: Mandible is unremarkable. No acute fracture. Soft tissues: Unremarkable. CT/CT facial bones wo con* [id number] IMPRESSION: Unremarkable mandible.
[2025-03-03 17:40] VITALS: BP 140/72; PULSE 86; O2SAT 94
[2025-03-03 17:49] VITALS: BP 139/77; PULSE 87; O2SAT 98
== END 2025-03-03 17:50 | disposition home or self-care (01) ==
PROVIDERS: Emergency Provider Emergency Medicine; PCP Family Medicine
DX: S00.83XA Contusion of other part of head, initial encounter (principal); W01.0XXA Fall on same level from slipping, tripping and stumbling without subsequent striking against object, initial encounter
CPT/HCPCS: 70450; 70486; 73110; 99284

== ENCOUNTER → 2025-04-26 08:36 | Outpatient (BNVA) | payer MEDICARE, SELFPAY | PROVIDERS: PCP Family Medicine; Visit Provider Student in an Organized Health Care Education/Training Program | DX: M19.011 Primary osteoarthritis, right shoulder (principal); Z96.611 Presence of right artificial shoulder joint | CPT/HCPCS: 73030; 99213 ==

== ENCOUNTER → 2025-05-31 14:33 | Outpatient (BNVA) | payer MEDICARE, SELFPAY | PROVIDERS: PCP Family Medicine; Visit Provider Student in an Organized Health Care Education/Training Program | DX: G56.01 Carpal tunnel syndrome, right upper limb (principal); G56.02 Carpal tunnel syndrome, left upper limb; M65.311 Trigger thumb, right thumb; M65.341 Trigger finger, right ring finger; M65.331 Trigger finger, right middle finger | CPT/HCPCS: 73130; 99214 ==

== ENCOUNTER 2025-06-29 06:41 | Day surgery (SDC) | payer MEDICARE, SELFPAY ==
[2025-06-29] VITALS (7 sets, daily range): BP systolic 102–160; BP diastolic 66–107; PULSE 67–90; RESP 16–18; TEMP 36.1–36.2; O2SAT 90–95
--- NOTE | 2025-06-29 07:17 | W.PM.OPSUD ---
Surgery/Procedure H&P Update DATE OF PROCEDURE: June 29, 2025 DATE H&P PERFORMED: 05/31/25 H&P UPDATE INFORMATION: I have reviewed H&P completed within last 30 days, I have examined patient prior to procedure and No changes to prior documentation PREOP DIAGNOSIS: Right thumb trigger, right middle and ring finger trigger PRIMARY INDICATION FOR PROCEDURE: Right thumb trigger, right middle and ring finger triggers PLANNED PROCEDURE: Operation Date: 06/29/25 10:00 Proposed Procedures p Right thumb, Right middle finger, and Right ring finger trigger release(Right) - Cuong Simons DO
[2025-06-29] MEDS: acetaminophen 1,000 MG/100 ML PIGGYBACK 400 MG IV (07:25)
--- NOTE | 2025-06-29 08:25 | ANES.PREANE2 ---
Pre-Anesthetic Assessment Height/Weight: Height 1.63 m Weight 90.718 kg Temp Pulse Resp BP Pulse Ox O2 Del Method 97 F L 90 18 160/107 95 Room Air 06/29/25 07:05 06/29/25 07:05 06/29/25 07:05 06/29/25 07:05 06/29/25 07:05 06/29/25 07:05 Preop Diagnosis: Right thumb trigger, right middle and ring finger trigger Operation Date: 06/29/25 10:00 Proposed Procedures p Right thumb, Right middle finger, and Right ring finger trigger release(Right) - Cuong Simons, Familial anesthetic complications: Hard time waking up Was Beta Flex taken within 24 hours: Yes Was Clonidine taken within 24 hours: N/A Last intake: Intake Last Liquid Date 06/28/25 Last Liquid Time 22:30 Last Solid Date 06/28/25 Last Solid Time 18:30 Social No alcohol and No tobacco Exam alert, oriented x 3, clear to auscultation bilaterally and regular rate & rhythm Airway Mallampati: Class III Dentition: other (none) Pulmonary Chronic Obstructive Pulmonary Disease CV/HEM Atrial Fibrillation and Hypertension Metabolic Hyperlipidemia Anesthetic Plan ASA status: 4 Anesthesia: MAC Risk of > 500 ml blood loss (7ml/kg in children): No Medications/Allergies Home Medications ?Medication ?Instructions ?Recorded ?Confirmed ?Last Taken ?Type albuterol sulfate 1.25 mg/3 mL 1.25 mg inhalation QID PRN 11/16/19 06/28/25 07/15/23 History solution for nebulization shortness of breath metoprolol tartrate 25 mg tablet 25 mg PO BID #60 tabs 07/08/22 06/29/25 06/29/25 Rx rosuvastatin 10 mg tablet 10 mg PO DAILY 10/21/22 06/28/25 06/28/25 History acyclovir 400 mg tablet 400 mg PO DAILY 07/15/23 06/28/25 06/28/25 History citalopram 10 mg tablet 10 mg PO DAILY 07/15/23 06/28/25 06/27/25 History gabapentin 600 mg tablet 600 mg PO BID 03/29/24 06/28/25 06/28/25 History midodrine 5 mg tablet 5 mg PO BID 03/29/24 06/28/25 06/28/25 History albuterol sulfate 90 mcg/actuation 1 inh inhalation QID PRN Shortness 04/22/24 06/28/25 06/28/25 History breath activated powder inhaler Of Breath amiodarone 200 mg tablet 100 mg (1/2 x 200 mg) PO DAILY #45 10/17/24 06/28/25 06/27/25 Rx tabs furosemide 20 mg tablet 20 mg PO DAILY #90 tabs 11/28/24 06/28/25 06/28/25 Rx rivaroxaban 20 mg tablet (Xarelto) 20 mg PO DAILY #90 tabs 12/07/24 06/28/25 06/27/25 Rx tramadol 50 mg tablet 50 mg PO Q6H PRN pain #20 tabs 06/29/25 Unknown Rx Allergies Allergy/AdvReac Type Severity Reaction Status Date / Time Penicillins Allergy Severe SOB and Verified 06/28/25 12:04 rash cortisone Allergy Unknown Unknown Verified 06/28/25 12:04 amoxicillin (From Augmentin) Allergy ADR-Numbnes Verified 06/28/25 12:04 s clavulanic acid (From Allergy ADR-Numbnes Verified 06/28/25 12:04 Augmentin) s ketorolac (From Toradol) Allergy ADR-Vomitin Verified 06/28/25 12:04 g meloxicam Allergy ADR-Itching Verified 06/28/25 12:04 Current Medications Generic Name Dose Route Start Last Admin Trade Name Freq PRN Reason Stop Dose Admin Sodium Chloride 1,000 mls @ 30 mls/hr 06/29/25 07:00 06/29/25 07:25 Sodium Chloride 0.9% IV 06/30/25 06:59 30 mls/hr .Q24H ZORA Administration PFSH Anesthesia Medical History Dizziness Epistaxis Rectal bleeding Atrial fibrillation Anticoagulant long-term use Dyslipidemia COPD (chronic obstructive pulmonary disease) HTN (hypertension) History of cardioversion Surgical History Status post carpal tunnel release Family History Father CAD (coronary artery disease) Stroke Mother CAD (coronary artery disease) Cancer Myocardial infarction Grandfather Diabetes PATERNAL Grandmother Diabetes MATERNAL Social History Smoking and tobacco/nicotine status: former use of tobacco/nicotine Alcohol intake: never Substance/Drug Use: never
[2025-06-29] MEDS: ROPivacaine 0.5% SDV 30 mL 25 MG INJECTION (11:15)
--- NOTE | 2025-06-29 11:35 | W.PM.BPON ---
Date of Procedure: [June 29, 2025] Surgeon: [Dr. Simons, DO] Postal Delivery Officer(s): [NA] Procedure(s) performed: [ Right thumb trigger release Right middle trigger finger release Right ring trigger finger release] Findings of the procedure(s): [Right thumb trigger thumb, right middle trigger finger and right ring trigger finger. Procedure went well and is planned] Estimated blood loss: [3 mL] Specimen(s) removed: [N/A] Post-operative diagnosis: [Right thumb trigger thumb, right middle trigger finger and right ring trigger finger]
--- NOTE | 2025-06-29 11:47 | P.OP_ITS ---
Operative Report Date of procedure: June 29, 2025 Surgeon: Cuong Simons DO Procedure: Preoperative diagnosis: Right thumb, middle, ring finger triggers post-op diagnosis: Same Procedure done: Right thumb trigger release Right middle?finger?trigger?release Right ring finger trigger release Surgeon: Cuong Simons DO Estimated blood loss: 3mL Tourniquet time 7mins Complications: None Condition: stable Disposition: same day Brief History: Patient's been seen and worked up in the outpatient setting and findings consistent with preoperative diagnosis of right thumb, middle, ring ?finger?triggers.? He is failed conservative treatment.? Continues to have mechanical locking and catching.? Severe pain as well.? We talked about treatment options nonoperative versus operative intervention.? ?Patient understands the risk benefits complication alternatives of surgical nonsurgical treatment options.? Understanding his risks with surgery he elects proceed with surgical intervention for right thumb, middle, ring finger trigger releases..? Consent obtained in the preoperative holding area.? Here today to proceed with surgical intervention.? All questions answered. Procedure: Patient was seen and evaluated in the preoperative holding area.? Consent was reviewed and signed with patient.? Seen evaluated by Anesthesia Department.? Once cleared for surgery was brought back to the operative suite.? Placed in supine position on the OR table all bony prominences well-padded patient properly secured to the bed.? Patient's right arm was then placed to the armboard.? A nonsterile tourniquet applied to the right upper arm.? Patient's right upper extremity was then prepped and draped in standard orthopedic fashion.? Final timeout performed.? Patient received appropriate preoperative antibiotics. Esmarch tourniquet was used exsanguinate the right upper extremity tourniquet insufflated to 250 mmHg. I started with the right thumb trigger release I utilized a digital block over the right thumb. I identified patient's MP flexion crease marked appropriate incision transversely across the flexion crease within Lori's lines sharp scalpel incision was made only through skin.? Once this was done I switched to Littler dissection scissors this I then subsequently spread longitudinally in the planes of the digital nerves.? Once these were identified these were protected by my assistant financial accountant with Kasdan retractors.? Next I identified directly over the A1 gali of the right?thumb.? This was significantly thickened and identified to be the area of patient's?thumb?triggering.? I used sharp scalpel to incise the A1 gali and then utilized my assistant financial accountant to retract the ability and under loupe magnification released the entirety of the A1 gali both proximally and distally up to the oblique gali.? This point time the tendon was then inspected and found to be healthy there was some inflammation around the tendon itself but no evidence of tearing and no need for any debridement.? The Ragnell was used to pull the tendon out of the incision and there was no mechanical?triggering I then took the patient's?thumb?through range of motion no recurrent?triggering was noted.? This point in time thorough irrigation performed wet Ray-Martha was placed in the wound bed and proceeded with middle finger. Under sterile aseptic technique local digital block was performed to the right middle?and ring fingers.? Once appropriately anesthetized a standard oblique incision was made centering over the A1 gali following patient's flexor crease for both the middle and ring fingers.? Sharp scalpel incision was made only through skin and then switched to Littler dissection scissors and spread longitudinally directly over the flexor tendon sheath.? I then mobilized both radially and ulnarly and Kasdan retractors were used and placed by my assistant financial accountant to protect neurovascular bundle.? Next I visualized the A1 agli and this was incised with a scalpel.? I then switched to dissection scissors and released the A1 gali both proximally as well as distally to its entirety.? Significant tendon sheath fluid was noted consistent with inflammation.? Mild fraying of the flexor tendons noted but no tear.? At this point I utilized a rag nail and pulled the tendons FDS and FDP out of the incision and no?triggering was noted.? This was done. Both in the right middle and ring fingers under the same standard technique the fingers were taken through range of motion no mechanical triggering was noted otherwise no triggering when pulling With Ragnell. ? This point thorough irrigation was performed.? Tourniquet deflated hemostasis satisfactory with bipolar.? I then subsequently closed the incisions with interrupted nylon suture.? Xeroform 4 x 4's, Kerlix and an Hira wrap was applied for a bulky soft dressing.? Patient was then subsequently awakened from anesthesia and taken to PACU in stable condition tolerated procedure without issues. Disposition: Patient taken back in stable condition recovering well.? Patient will receive appropriate discharge instruction as well as pain medication postoperatively.? Patient to follow-up with me in the office in 2 weeks for repeat evaluation and incision check.? Patient understands that any questions or concerns and contact the office.? All questions answered.
--- NOTE | 2025-06-29 11:52 | P.PCN_ITS ---
PACU note Narrative: Patient is a 80-year-old male with just underwent multiple trigger finger. Patient transferred to PACU in stable condition. Pain is well controlled. Dressing on hand is dry and in place. Patient's fingers are warm and well- perfused. Patient can wiggle fingers. normal cap refill under 2 seconds. Sensation of fingers intact. Exam: awake Disposition: discharged
--- NOTE | 2025-06-29 13:00 | ANE.PACU2 ---
Inpatient post-anesthesia follow up: Airway intact: Yes Vital signs: Temperature 97.2 F Pulse Rate 84 Respiratory Rate 16 Blood Pressure 102/66 Pulse Oximetry 94 Oxygen Delivery Me thod Room Air Oxygen Flow Rate Fraction of Inspir ed Oxygen Hydration adequate: Yes Nausea and vomiting: No Pain level: 1 Mental status: Baseline
== END 2025-06-29 13:00 | disposition home or self-care (01) ==
PROVIDERS: PCP Family Medicine; Visit Provider Student in an Organized Health Care Education/Training Program
PROC: (CPT 26055; principal; 2025-06-29 10:00)
DX: M65.311 Trigger thumb, right thumb (principal); M65.331 Trigger finger, right middle finger; M65.341 Trigger finger, right ring finger; J44.9 Chronic obstructive pulmonary disease, unspecified; I48.91 Unspecified atrial fibrillation; I10 Essential (primary) hypertension; E78.5 Hyperlipidemia, unspecified; Z79.01 Long term (current) use of anticoagulants; Z87.891 Personal history of nicotine dependence
CPT/HCPCS: 26055 ×3; J0131; J2250; J2704; J2795; J3010; J3490; J7030; J9999

== ENCOUNTER → 2025-07-11 15:02 | Outpatient (BNVA) | payer MEDICARE, SELFPAY | PROVIDERS: PCP Family Medicine; Visit Provider Physician Assistant | DX: Z98.890 Other specified postprocedural states (principal) | CPT/HCPCS: 99024 ==

== ENCOUNTER → 2025-07-25 14:34 | Outpatient (BNVA) | payer MEDICARE, SELFPAY | PROVIDERS: PCP Family Medicine; Referring Provider Physician Assistant; Visit Provider Specialist | DX: G56.02 Carpal tunnel syndrome, left upper limb (principal); M18.12 Unilateral primary osteoarthritis of first carpometacarpal joint, left hand; G56.22 Lesion of ulnar nerve, left upper limb; Z98.890 Other specified postprocedural states | CPT/HCPCS: 95909; 99024 ==

== ENCOUNTER → 2025-08-22 09:42 | Outpatient (BNVA) | payer MEDICARE, SELFPAY | PROVIDERS: PCP Family Medicine; Visit Provider Student in an Organized Health Care Education/Training Program | DX: G56.02 Carpal tunnel syndrome, left upper limb (principal) | CPT/HCPCS: 99214 ==

== ENCOUNTER 2025-09-05 07:00 | Day surgery (SDC) | payer MEDICARE, SELFPAY ==
[2025-09-05] VITALS (7 sets, daily range): BP systolic 97–138; BP diastolic 59–89; PULSE 84–107; RESP 16–18; TEMP 36.1–36.3; O2SAT 94–97; BMI 34.7
--- NOTE | 2025-09-05 07:29 | ANES.PREANE2 ---
Pre-Anesthetic Assessment Height/Weight: Height 1.63 m Weight 91.626 kg Temp Pulse Resp BP Pulse Ox O2 Del Method 97 F L 107 H 16 97/59 94 Room Air 09/05/25 07:19 09/05/25 07:19 09/05/25 07:19 09/05/25 07:19 09/05/25 07:19 09/05/25 07:19 Operation Date: 09/05/25 08:40 Proposed Procedures p LEFT Carpal Tunnel Release(Left) - Cuong Houghton, Familial anesthetic complications: slow to wake Was Beta Flex taken within 24 hours: N/A Was Clonidine taken within 24 hours: N/A Last intake: Intake Last Liquid Date 09/04/25 Last Liquid Time 23:30 Last Solid Date 09/04/25 Last Solid Time 18:00 Social No alcohol and No tobacco Exam alert, oriented x 3, clear to auscultation bilaterally and regular rate & rhythm Airway Mallampati: Class IV Dentition: other (none) Pulmonary Chronic Obstructive Pulmonary Disease CV/HEM Atrial Fibrillation and Hypertension Anesthetic Plan ASA status: 3 Anesthesia: MAC Risk of > 500 ml blood loss (7ml/kg in children): No Medications/Allergies Home Medications ?Medication ?Instructions ?Recorded ?Confirmed ?Last Taken ?Type albuterol sulfate 1.25 mg/3 mL 1.25 mg inhalation QID PRN 11/16/19 09/05/25 07/15/23 History solution for nebulization shortness of breath metoprolol tartrate 25 mg tablet 25 mg PO BID #60 tabs 07/08/22 09/05/25 09/05/25 Rx rosuvastatin 10 mg tablet 10 mg PO DAILY 10/21/22 09/05/25 09/04/25 History acyclovir 400 mg tablet 800 mg PO DAILY 07/15/23 09/05/25 09/04/25 History citalopram 10 mg tablet 10 mg PO DAILY 07/15/23 09/05/25 09/04/25 History gabapentin 600 mg tablet 600 mg PO BID 03/29/24 09/05/25 09/04/25 History midodrine 5 mg tablet 5 mg PO BID 03/29/24 09/05/25 09/04/25 History albuterol sulfate 90 mcg/actuation 1 inh inhalation QID PRN Shortness 04/22/24 09/05/2525 History breath activated powder inhaler Of Breath amiodarone 200 mg tablet 100 mg (1/2 x 200 mg) PO DAILY #45 10/17/24 09/05/25 09/05/25 Rx tabs furosemide 20 mg tablet 20 mg PO DAILY #90 tabs 11/28/24 09/05/25 09/04/25 Rx rivaroxaban 20 mg tablet (Xarelto) 20 mg PO DAILY #90 tabs 12/07/24 09/05/25 09/04/25 Rx Allergies Allergy/AdvReac Type Severity Reaction Status Date / Time Penicillins Allergy Severe SOB and Verified 09/04/25 09:26 rash cortisone Allergy Unknown Unknown Verified 09/04/25 09:26 amoxicillin (From Augmentin) Allergy ADR-Numbnes Verified 09/04/25 09:26 s clavulanic acid (From Allergy ADR-Numbnes Verified 09/04/25 09:26 Augmentin) s ketorolac (From Toradol) Allergy ADR-Vomitin Verified 09/04/25 09:26 g meloxicam Allergy ADR-Itching Verified 09/04/25 09:26 [facility] Anesthesia Medical History Dizziness Epistaxis Rectal bleeding Atrial fibrillation Anticoagulant long-term use Dyslipidemia COPD (chronic obstructive pulmonary disease) HTN (hypertension) History of cardioversion Surgical History Status post carpal tunnel release Family History Father CAD (coronary artery disease) Stroke Mother CAD (coronary artery disease) Cancer Myocardial infarction Grandfather Diabetes PATERNAL Grandmother Diabetes MATERNAL Social History Smoking and tobacco/nicotine status: never used tobacco/nicotine Alcohol intake: never Substance/Drug Use: never
[2025-09-05] MEDS: acetaminophen 1,000 MG/100 ML PIGGYBACK 400 MG IV (07:38)
[2025-09-05 07:49] LABS: Hematocrit 45.6 % (37-53); Hemoglobin 15.60 g/dL (11.27-16.99); Mean Corpuscular HGB Conc 34.2 g/dL (30-55); Mean Corpuscular Hemoglobin 32.6 pg (27-33); Mean Corpuscular Volume 95.2 fl (82-101); Nucleated Red Blood Cells % 0 %; Platelet Count 164 10^3/cmm (157-399); Red Blood Count 4.79 10^6/uL (3.85-5.65); White Blood Count 9.29 10^3/uL (3.29-11.43)
--- NOTE | 2025-09-05 07:49 | W.PM.OPSUD ---
Surgery/Procedure H&P Update DATE OF PROCEDURE: September 05, 2025 DATE H&P PERFORMED: 08/22/25 H&P UPDATE INFORMATION: I have reviewed H&P completed within last 30 days, I have examined patient prior to procedure and No changes to prior documentation CHANGES TO PREVIOUS DOCUMENTATION: Patient back in 2020 did have this procedure performed. At this point in time has had recurrence of symptoms. And elects to proceed with a left carpal tunnel release surgery will be for left carpal tunnel release today. Patient once again understands the ins and outs procedure risk benefits complication alternatives surgical nonsurgical treatment options. Understand risk of surgery elects proceed with surgical invention all questions at this time. Will use the previous incision he understands if there is more incision needs to be utilized for adequate decompression we will have to extend incision if necessary otherwise we will try to work through the same incision at this point in time I feel we can likely work this through the same incision as we have retractors have ability to look into the distal forearm from this and then through this incision however if having difficulty understands we may have to extend this up past the wrist crease still try to prevent going open past the wrist crease just to prevent limitations on motions if possible. Patient understands and agrees with current plan. All questions answered. PREOP DIAGNOSIS: Left carpal tunnel syndrome PRIMARY INDICATION FOR PROCEDURE: Left carpal tunnel syndrome PLANNED PROCEDURE: Operation Date: 09/05/25 08:40 Proposed Procedures p LEFT Carpal Tunnel Release(Left) - Cuong Simons DO
[2025-09-05 08:08] LABS: Anion Gap 15.1 (5-19); Blood Urea Nitrogen 22 mg/dL (8-23); Calcium 9.1 mg/dL (8.5-10.5); Carbon Dioxide 25 mmol/L (22-29); Chloride 104 mmol/L (98-107); Glucose 112 mg/dL (65-115); Osmolality Calculated 294 mOsm/kg (285-295); Potassium 4.1 mmol/L (3.5-5.1); Sodium 140 mmol/L (136-145)
[2025-09-05] MEDS: ROPivacaine 0.5% SDV 30 mL 25 MG INJECTION (08:38)
[2025-09-05] MEDS: lidocaine-epi 1% 20 mL INJ 5 ML INJECTION (08:38)
--- NOTE | 2025-09-05 08:47 | P.BOP_ITS ---
Date of Procedure: 09/05/2025 Surgeon: Cuong Simons DO Industrial Fabric Cutter(s): Jorge L Simons PA-C Procedure(s) performed: Left carpal tunnel release revision Findings of the procedure(s): Patient underwent procedure as planned without issues or complications taken recovery stable condition volar splint on in place Estimated blood loss: 10 mL Specimen(s) removed: None Post-operative diagnosis: Left carpal tunnel syndrome recurrent
--- NOTE | 2025-09-05 08:47 | P.OP_ITS ---
Operative Report Date of procedure: September 05, 2025 Surgeon: Cuong Simons DO Alligator Shear Operator: Jorge L Simons PA-C: PA was necessary for assistance in this case with hand positioning to execute the procedure, retraction and protection of neurovascular structures as well as to assist with wound closure and dressing application. Procedure: Preoperative diagnosis: Recurrent Left carpal tunnel syndrome Post-op diagnosis: Same Procedure done: 1.? Revision Left carpal tunnel?release Surgeon: Cuong Simons DO Anesthesia: MAC (Local) Estimated blood loss: 10mL Tourniquet time [14]minutes IV fluids: See anesthesia?record Complications: None Findings: See operative?report narrative Condition: stable Disposition: same day Brief History: Patient is a pleasant [80]year-old [male] with? Left carpal tunnel syndrome.? Patient has had this release several years ago at this point in time patient does appear to have recurrence. Patient has been worked up in the outpatient setting findings and physical examination consistent with this.? Patient nerve conduction studies consistent with left carpal tunnel syndrome moderate to severe.? Patient has had a prior carpal tunnel release surgery showing recurrent Left carpal tunnel syndrome on my examination he does have consistent findings with this and classic carpal tunnel symptoms on examination. We detailed out patient's?risk benefits complication alternatives with surgical and nonsurgical treatment options. Through shared decision making, patient agrees to proceed with surgical intervention of the Left carpal tunnel?release.? Patient understands and agrees with current plan.? All questions answered. Procedure: Patient seen and evaluated in the preoperative holding area.? Consent was?reviewed and signed with patient.? Correct extremity was marked.? Patient was seen evaluated by the anesthesia department once cleared for surgery was brought back to the operative suite.? Patient was kept on [facility] in supine position all bony prominences were well-padded patient properly secured to the bed.??Left upper extremity was then placed onto an armboard.? A nonsterile tourniquet was applied to the?Left upper arm.? Patient underwent anesthesia per the anesthesia department.? Patient's?Left upper extremity was then prepped and draped in standard orthopedic fashion.? Final timeout perform ed.? Patient?received appropriate preoperative antibiotics. Under sterile aseptic technique patient?received local anesthesia over the preplanned carpal tunnel incision site. Esmarch was used to exsanguinate the?Left upper extremity and tourniquet was insufflated to 250 mmHg. Started off with a standard left carpal tunnel incision there was significant scar tissue and adhesions at this point in time determined extension of the incision to A Extensive open?Left carpal tunnel incision was made. Starting distally at Christian's cardinal line in line with the fourth?ray extending proximally Sandy past the wrist crease and into the distal forearm. Sharp scalpel incision was made through skin and subcutaneous tissue.? Self-retaining?retractor was placed and the palmar fascia was identified.? This was then split longitudinally and direct visualization of the recurrent transverse carpal ligament was then made.? I then utilizing scalpel feathered through the transverse carpal ligament until I entered the floor of the transverse carpal tunnel ligament into the carpal tunnel.? Next I switched to dissection scissors and completed my?release of the transverse carpal ligament distally with care to protect the?recurrent motor branch.? I completely?released into the palmar fat and until no entrapment was noted distally.? Care was made to protect the superficial palmar arch during my distal dissection.?? Next I made an incision proximally. Once I had identified the median nerve distally I placed a [place] underneath this and continued to dissect through the transverse carpal ligament proximally. Once the entirety of the carpal tunnel was released and open it was noted there was significant tethering of patient's forearm fascia as well as palmaris longus tendon as result given the tethering of the palmar fascia as well as the median antebrachial fascia I then utilized Littler dissection scissors to excise this into the distal forearm to where there was no further areas of entrapment this completely released the median nerve in this region. I then did release ulnar portion of the palmaris longus as this did have an area that was tethering across the median nerve. This was all performed under direct loupe magnification and patient was found to have a complete lax and fully exposed and decompressed nerve from the Christian's cardinal line to the distal third of the forearm with no areas of entrapment or tethering. There was hourglass shape of the median nerve showing its compression, The rest of the contents of the carpal tunnel were healthy and intact. No masses were noted.? Tendons appeared healthy and intact. Wound was then thoroughly irrigated.? Tourniquet deflated.? Hemostasis satisfactory with bipolar electrocautery.? I then closed the incision with interrupted nylon stitches.? Xeroform 4 x 4's and a bulky soft dressing was applied.? Volar splint applied given incision went across the wrist crease Patient was then awakened from anesthesia and taken to PACU in stable condition.? Patient tolerated procedure without complications. Disposition: Patient taken to PACU in stable condition?recovering well.? Dressing clean dry and intact.? Patient will?receive appropriate discharge instructions as well as pain medication postoperatively.? Patient to follow-up with me in the office in 2 weeks.? maintain splint.? Patient should keep incision clean dry and intact.? Patient understands if any questions or concerns may contact the office.
--- NOTE | 2025-09-05 10:15 | ANE.PACU2 ---
Inpatient post-anesthesia follow up: Airway intact: Yes Vital signs: Temperature 97.3 F Pulse Rate 84 Respiratory Rate 16 Blood Pressure 138/89 Pulse Oximetry 94 Oxygen Delivery Me thod Room Air Oxygen Flow Rate Fraction of Inspir ed Oxygen Hydration adequate: Yes Nausea and vomiting: No Pain level: 1 Mental status: Baseline
== END 2025-09-05 10:15 | disposition home or self-care (01) ==
PROVIDERS: Anesthesiology; PCP Family Medicine; Visit Provider Student in an Organized Health Care Education/Training Program
PROC: (CPT 64721; principal; 2025-09-05 08:30)
DX: G56.02 Carpal tunnel syndrome, left upper limb (principal); J44.9 Chronic obstructive pulmonary disease, unspecified; I48.91 Unspecified atrial fibrillation; I10 Essential (primary) hypertension; E78.5 Hyperlipidemia, unspecified; Z79.01 Long term (current) use of anticoagulants
CPT/HCPCS: 64721; 36415; 80048; 85025; J0131; J2250; J2704; J2795; J3010; J3490; J7030; J9999

== ENCOUNTER → 2025-09-20 11:01 | Outpatient (BNVA) | payer MEDICARE, SELFPAY | PROVIDERS: PCP Family Medicine; Visit Provider Physician Assistant | DX: Z98.890 Other specified postprocedural states (principal) | CPT/HCPCS: 99024 ==